=== PATIENT | female | born 1950 | race Caucasian/White ===

== ENCOUNTER 2024-07-15 11:37 | Outpatient (CLI) | payer MEDICARE, SELFPAY ==
--- OUTSIDE RECORDS SUMMARY | 2024-07-15 11:54 | XMS_ITS | Clinical Summary ---
Author Organization [facility] [employer] Address [address] [place] [address] Care Team Providers Care Intelligence Director Name Role Phone Raheel Becker MD Primary Care Provider [phone] Raheel Becker MD Unavailable [phone] Source Comments [facility]non-owned Affiliates and Associated Physician Practices is amultiple site organization consisting of ambulatory clinics and hospital sitesin [place], [place], [place] and [place]. This disclosure is being madepursuant to the Care Everywhere program and may not contain all information available regarding this patient. Last updated 17.[facility] Allergies No known active allergies Medications * This document contains information received from the source organization and may not represent a complete record from that organization. * Be aware that medications may not be up to date on this document. Alwaysverify current medications with the patient. Multiple Vitamins-Minerals (ONE-A-DAY 50 PLUS PO) Active traZODone (Desyrel) 50 MG tabletIndications: Insomnia, unspecified type Take 2 (two) tablets by mouth at bedtime 180 tablet 4 4 Active buPROPion XL 24hr (Wellbutrin-XL) 300 MG tablet Take 1 (one) tablet by mouth once daily 30 tablet 5 4 Active hydroCHLOROthiazid e (Hydrodiuril) 25 MG tablet Take 1 (one) tablet by mouth once daily 90 tablet 1 4 Active rosuvastatin (Crestor) 10 MG tabletIndications: Hyperlipidemia LDL goal <100 Take 1 (one) tablet by mouth once daily 100 tablet 4 5 Active meloxicam (Mobic) 15 MG tablet TAKE 1 TABLET BY MOUTH EVERY DAY 90 tablet 5 Active fluticasone propionate (Flonase) 50 MCG/ACT nasal sprayIndications:P ND (paroxysmal nocturnal dyspnea) SPRAY 2 SPRAYS INTO EACH NOSTRIL EVERY DAY 48 g 1 5 Active HYDROcodone-acetam inophen ([place]) 5-325 MG tabletIndications: Primary osteoarthritis of left hip Take 1 (one) tablet by mouth every 6 hours as needed for Pain 20 tablet 5 07/18/19 25 Active benzonatate (Tessalon) 200 MG capsuleIndications :Cough, unspecified type Take 1 (one) capsule by mouth 3 times daily as needed for Cough 60 capsule 5 06/18/19 25 Discontin ued(List Clean-Up) Active Problems Problem Noted Date Diagnosed Date Balance problem 05/25/2021 Tendinopathy of right rotator cuff 05/24/2020 Primary osteoarthritis involving multiple joints 04/30/2020 Moderate episode of recurrent major depressive d isorder 04/02/2020 Overview (04/02/2020): Barby 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, 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 11/28/2019 Full code status 09/04/2016 HLD (hyperlipidemia) 12/29/2014 Overview (10/25/2022): 10 year CVD risk intermediate at 10.8% 10/25/2022 Chronic back pain 11/03/2014 Assessment & Plan (05/01/2023 11:23 AM LAB REP): Multiple spinal fusions Left lower extremity adversely affected Neuropathy 11/03/2014 Resolved Problems Problem Noted Date Diagnosed Date Resolved Date Depression 02/07/2019 06/17/2024 Congestive heart failure, un specified HF chronicity, unspecified heart failure type 02/07/2019 10/25/2022 Overview (02/07/2019): Shay Johnson MD 02/07/2019 Vitamin D deficiency 10/29/2017 024 Encounters Date Type Department Care Team Description 06/24/2024 Orders Only [facility] [address] [place] [phone] Raheel Becker MD Pre-op exam 06/18/2024 Results Follow-Up [facility] [address] [place] [phone] Raheel Becker MD 06/17/2024 10:40 AM CDT Office Visit [facility] [address] [place] [phone] Raheel Becker MD Pre-op exam (Primary Dx); Primary osteoarthritis of left hip; Moderate episode of recurrent major depressive disorder (HCC); Hyperlipidemia, unspecified hyperlipidemia type; Balance problem; Chronic low back pain, unspecified back pain laterality, unspecified whether sciatica present 05/28/2024 Telephone [facility] [address] [place] [phone] Raheel Becker MD Pre-op Clearance 05/16/2024 Refill [facility] [address] [place] [phone] Raheel Becker MD Med Change Request 05/09/2024 Refill [facility] [address] [place] [phone] Raheel Becker MD Refill Request 04/20/2024 Refill [facility] [address] [place] [phone] Raheel Becker MD Med Change Request from Last 3 Months Immunizations Immunization Administration Dates Next Due Covid Alloy Digital primary monoval ent 12+ yr 0.3mL Purple cap 05/04/2020,04/09/2020 INFLUENZA VACCINE 12/28/2021,11/18/2018,12/03/19 18 INFLUENZA VACCINE, ADJUVANTE D, QUADR. (FLUAD QUADRIVALENT; 65Y+) (AIIV4) 11/15/2022,12/27/2020 INFLUENZA VACCINE, ADJUVANTE D, TRIV. (FLUAD TRIVALENT; 65Y+) (AIIV3) 01/31/2017 INFLUENZA VACCINE, HIGH-DOSE , QUADR. (FLUZONE HIGH-DOSE QUADRIVALENT; 65Y+), 0.7 ML (HD-IIV4) 12/25/2021,11/18/2018 INFLUENZA VACCINE, HIGH-DOSE , TRIV. (FLUZONE HIGH-DOSE TRIVALENT; 65Y+) (HD-IIV3) 11/18/2018,12/02/2017 INFLUENZA VACCINE, QUADR. (A FLURIA, FLUZONE QUADRIVALENT; 6MO+) (IIV4) 12/30/2014,01/03/2014 PNEUMOCOCCAL PPSV23 10/26/2017 Pneumococcal Pcv13 Conj 09/04/2016 RSV AREXVY 60YR+ 0.5ML 02/12/2023 TDAP (7yrs+) 09/04/2016 iNFLUENZA VACCINE, RECOM-BOWLES, QUADR. (FLUBLOCK QUADRIVALENT; 18Y+) (RIV4) 11/28/2019 Family History Medical History Relation Name Comments Cancer - Breast Maternal Aunt Alzheimer's Disease Mother Relation Name Status Comments Maternal Aunt Mother Social History Tobacco Use Types Packs/Day Years Used Date Smoking Tobacco: Former Cigarettes 0.2 20 Smokeless Tobacco: Never Tobacco Cessation:Counseling Given: Not Answered Alcohol Use Standard Drinks/Week Comments Yes 0.8 (1 standard drink = 0.6 oz p ure alcohol) [employer] PHQ-2 Answer Date Recorded Patient Health Questionnaire-2 Score 0 06/17/2024 Comments No Sex and Gender Information Value Date Recorded Sex Assigned at Female 12/24/2020 10:36 AM CDT Legal Sex Female 6:33 AM LAB REP Gender Identity Female 12/24/2020 10:36 AM CDT Sexual Orientation Straight 12/24/2020 10 :36 AM CDT Occupation Industry Job Start Date Job End Date retired/disabled Not on file Not on file Not on file Last Filed Vital Signs Vital Sign Reading Time Taken Comments Blood Pressure 130/72 06/17/2024 10:19 AM CDT Pulse 77 06/17/2024 10:19 AM CDT Temperature 36.4 C (97.6 F) 06/17/2024 10:19 AM CDT Respiratory Rate 18 06/17/2024 10:19 AM CDT Oxygen Saturation 99% 06/17/2024 10:19 AM CDT Inhaled Oxygen Concentration - - Weight 64 kg (141 lb) 06/17/2024 10:19 AM CDT Height 167.6 cm (5' 5.98 ) 06/17/2024 10:19 AM C DT Body Mass Index 22.77 06/17/2024 10:19 AM CDT Plan of Treatment Upcoming Encounters Date Type Department Care Team (Late st Contact Info) Description 11/13/2024 10:00 AM CDT Office Visit [facility] - [facility] Medicine [address] [place] [phone] Raheel Becker MD [address] [phone] Health Maintenance Due Date Last Done Comments COLOGUARD (AGES 45-75) - COLON CA SCREENING 1950 CT COLONOGRAPHY - COLON CA SCREENING 1950 FIT - COLON CA SCREENING 1950 FLEX SIG - COLON CA SCREENING 1950 ZOSTER VACCINE (1 of 2) 02/24/2000 COVID-19 VACCINE ( season) 2024 02/12/2024, 12/25/2021, 12/27/2020, Additional history exists MAMMOGRAM 10/28/2024 10/28/2022, 01/0 07/2020, 01/04/2019, Additional history exists DTAP/TDAP/TD VACCINES (2 - Td or Tdap) 09/04/2026 09/04/2016 COLON MONITORING 01/10/2028 01/09/2023, 09/2022, 01/09/2023, Additional history exists Colorectal Cancer Screening 01/10/2028 COLONOSCOPY - COLON CA SCREENING 01/09/2033 01/09/2023, 01/09/2023, 01/09/2023, Additional history exists HEPATITIS C SCREENING Completed 12/21/2014 PNEUMOCOCCAL VACCINE 50+ Completed 10/26/2017, 07/0 05/2016 BONE DENSITY TESTING Completed 11/23/2017 Respiratory Syncytial Virus (RSV) Vaccine Pt: or over 60 yrs Completed 02/12/2023 INFLUENZA VACCINE Completed 02/12/2024, , 11/15/2022, Additional history exists MEDICARE AWV CALENDAR YEAR Completed 03/28/2024, 05/01/2023, 08/14/2022, Additional history exists DEPRESSION SCREENING Completed 06/17/2024, 05/10/2023, 05/01/2023, Additional history exists HEPATITIS B VACCINE Aged Out No longe r eligible based on patient's age to complete this topic HIB VACCINE Aged Out No longer eligi ble based on patient's age to complete this topic HPV VACCINE Aged Out No longer eligi ble based on patient's age to complete this topic MENINGOCOCCAL (Group B) VACCINE SHARED DECISION-MAKING Aged Out No longer eligible based on patient's age to complete this topic MENINGOCOCCAL GROUPS A/C/Y/W VACCINE Aged Out No longer eligible based on patient's age to complete this topic Procedures Procedure Name Priority Date/Time Associated Diagnosis Comments B-TYPE NATRIURETIC PEPTIDE Routine 06/17/2024 11:16 AM CDT Pre-op exam VITAMIN D 25-HYDROXY Routine 06/17/2024 11:15 AM CDT Pre-op exam LIPID PROFILE Routine 06/17/2024 11:15 AM CDT Pre-op exam COMPREHENSIVE METABOLIC PANEL Routine 06/17/2024 11:15 AM CDT Pre-op exam CBC W AUTO DIFFERENTIAL Routine 06/17/2024 11:15 AM CDT Pre-op exam EKG 12-LEAD Routine 06/17/2024 Pre-op exam ENDOSCOPY, COLON, SCREENING Routine 01/09/2023 10:39 AM LAB REP Screen for colon cancer Personal history of colonic polyps History of diverticulosis MAMMO BILAT SCREENING W DEEDEE Routine 10/28/2022 8:46 AM CDT Screening mammogram for breast cancer DEXA BONE DENSITY AXIAL SKELETON Routine 11/23/2017 12:58 PM CDT At high risk for osteoporosis HEPATITIS C ANTIBODY 12/21/2014 8:18 AM CDT from Last 3 Months or Most Recently Relevant to Health Maintenance Results * B-TYPE NATRIURETIC PEPTIDE (06/17/2024 11:16 AM CDT) BNP 40.3 0.0 - 100.0 pg/mL [facility] ACCOUNT BILL Comment:[employer] methodology Blood BLOOD SPECIMEN / Unknown 06/17/2024 11:16 AM CDT 06/17/2024 Narrative [facility] ACCOUNT BILL - 06/18/2024 8:11 AM CDT Performed at: 01 - [address] [id number] [employer] [place]: Kurtis Law PhD, Phone: [phone] us Raheel Becker MD LAB - CHEMISTRY ORDERABLES Fi nal Result [facility] ACCOUNT BILL [address] [place] [address] * VITAMIN D 25-HYDROXY (06/17/2024 11:15 AM CDT) Vitamin D, 25 Hydroxy 36.7 30.0 - 100.0 ng/mL [facility] ACCOUNT BILL Comment: Vitamin D deficiency has been defined by the [place] of [employer] and an Endocrine Society practice guideline as a level of serum 25-OH vitamin D less than 20 ng/mL (1,2). The Endocrine Society went on to further define vitamin D insufficiency as a level between 21 and 29 ng/mL (2). 1. IOM ([place] of [employer]). 2010. Dietary reference intakes for calcium and D. [place]: The National Academies Press. 2. Gretchen MF, Malorie NC, Deon BOWLES, et al. Evaluation, treatment, and prevention of vitamin D deficiency: an Endocrine Society clinical practice guideline. JCEM. 2010; 96(7):1911-30. Blood BLOOD SPECIMEN / Unknown 06/17/2024 11:15 AM CDT 06/17/2024 Narrative [facility] ACCOUNT BILL - 06/18/2024 7:09 AM CDT Performed at: 01 - [place] [id number] [facility], [place], [place] [id number] [employer] Runner: Kurtis Law PhD, Phone: [phone] us Raheel Becker MD LAB - CHEMISTRY ORDERABLES Fi nal Result [facility] ACCOUNT BILL [address] [place] [address] * CBC WITH DIFFERENTIAL (06/17/2024 11:15 AM CDT) WBC 6.7 3.4 - 10.8 x10E3/uL [facility] ACCOUNT BILL RBC 4.52 3.77 - 5.28 x10E6/uL [facility] ACCOUNT BILL Hemoglobin 13.4 11.1 - 15.9 g/dL [facility] ACCOUNT BILL Hematocrit 41.4 34.0 - 46.6 % [facility] ACCOUNT BILL MCV 92 79 - 97 fL [facility] ACCOUNT BILL MCH 29.6 26.6 - 33.0 pg [facility] ACCOUNT BILL MCHC 32.4 31.5 - 35.7 g/dL [facility] ACCOUNT BILL RDW 12.1 11.7 - 15.4 % [facility] ACCOUNT BILL Platelet Count 369 150 - 450 x10E3/uL [facility] ACCOUNT BILL Granulocytes % 48 Not Estab. % [facility] ACCOUNT BILL Lymphocytes % 36 Not Estab. % [facility] ACCOUNT BILL Monocytes % 13 Not Estab. % [facility] ACCOUNT BILL Eosinophils % 2 Not Estab. % [facility] ACCOUNT BILL Basophils % 1 Not Estab. % [facility] ACCOUNT BILL Granulocytes Absolute 3.3 1.4 - 7.0 x10E3/uL [facility] ACCOUNT BILL Lymphocytes Absolute 2.4 0.7 - 3.1 x10E3/uL [facility] ACCOUNT BILL Monocytes Absolute 0.9 0.1 - 0.9 x10E3/uL [facility] ACCOUNT BILL Eosinophils Absolute 0.1 0.0 - 0.4 x10E3/uL [facility] ACCOUNT BILL Basophils Absolute 0.1 0.0 - 0.2 x10E3/uL [facility] ACCOUNT BILL Immature Granulocytes 0 Not Estab. % [facility] ACCOUNT BILL Immature Granulocytes Absolute 0.0 0.0 - 0.1 x10E3/uL [facility] ACCOUNT BILL Blood BLOOD SPECIMEN / Unknown 06/17/2024 11:15 AM CDT 06/17/2024 Narrative [facility] ACCOUNT BILL - 06/18/2024 12:07 AM CDT Performed at: 01 - [facility] [id number] [place]: Kurtis Law PhD, Phone: [phone] us Raheel Becker MD LAB - HEMATOLOGY ORDERABLES F inal Result [facility] ACCOUNT BILL [address] [place] [address] * COMPREHENSIVE METABOLIC PANEL (06/17/2024 11:15 AM CDT) Pathologist [facility] Glucose 99 70 - 99 mg/dL [facility] ACCOUNT BILL BUN 20 8 - 27 mg/dL [facility] ACCOUNT BILL Creatinine 0.82 0.57 - 1.00 mg/dL [facility] ACCOUNT BILL eGFR by CKD-EPI 75 >59 mL/min/1.7 3 [facility] ACCOUNT BILL BUN/Creatinine Ratio 24 12 - 28 [facility] ACCOUNT BILL Sodium 140 134 - 144 mmol/L [facility] ACCOUNT BILL Potassium 3.9 3.5 - 5.2 mmol/L [facility] ACCOUNT BILL Chloride 99 96 - 106 mmol/L [facility] ACCOUNT BILL CO2 25 20 - 29 mmol/L [facility] ACCOUNT BILL Calcium 10.0 8.7 - 10.3 mg/dL [facility] ACCOUNT BILL Protein Total 7.1 6.0 - 8.5 g/dL [facility] ACCOUNT BILL Albumin 4.8 3.8 - 4.8 g/dL [facility] ACCOUNT BILL Globulin Total 2.3 1.5 - 4.5 g/dL [facility] ACCOUNT BILL Bilirubin Total 0.3 0.0 - 1.2 mg/dL [facility] ACCOUNT BILL Alkaline Phosphatase 112 44 - 121 IU/L [facility] ACCOUNT BILL AST 21 0 - 40 IU/L [facility] ACCOUNT BILL ALT 19 0 - 32 IU/L [facility] ACCOUNT BILL Blood BLOOD SPECIMEN / Unknown 06/17/2024 11:15 AM CDT 06/17/2024 Narrative [facility] ACCOUNT BILL - 06/18/2024 7:09 AM CDT Performed at: 01 - [facility] [id number] [employer] [place]: Kurtis Law PhD, Phone: [phone] us Rhaeel Becker MD LAB - CHEMISTRY ORDERABLES Fi nal Result Performing Organization Address City/[facility]/ZIP Co de Phone Number [facility] ACCOUNT BILL [address] [place] [address] * LIPID PROFILE (06/17/2024 11:15 AM CDT) [facility] Cholesterol 171 100 - 199 mg/dL [facility] ACCOUNT BILL Triglycerides 71 0 - 149 mg/dL [facility] ACCOUNT BILL HDL Cholesterol 77 >39 mg/dL [facility] ACCOUNT BILL VLDL Calculated 13 5 - 40 mg/dL [facility] ACCOUNT BILL LDL Calculated 81 0 - 99 mg/dL [facility] ACCOUNT BILL Blood BLOOD SPECIMEN / Unknown 06/17/2024 11:15 AM CDT 06/17/2024 Narrative [facility] ACCOUNT BILL - 06/18/2024 8:11 AM CDT Performed at: - [address] [id number] [place]: Kurtis Law PhD, Phone: [phone] us Raheel Becker MD LAB - CHEMISTRY ORDERABLES Fi nal Result Performing Organization Address City/[facility]/ZIP Co de Phone Number [facility] ACCOUNT BILL [address] [place] [address] * EKG 12-LEAD (06/17/2024) 06/17/2024 us Raheel Becker MD ECG ORDERABLES Final Result * ENDOSCOPY, COLON, SCREENING (01/09/2023 10:39 AM LAB REP) Report Endoscopy POC _ Patient Name: Diana Keen Procedure Date: 01/09/2023 10:39 AM Date of : 1950 Admit Type: Outpatient Age: 72 Gender: Female Ethnicity: Not or Race: White Attending MD: Lianna Bhardwaj MD, [id number] _ Procedure: Colonoscopy Indications: Surveillance: Personal history of colonic polyps (unknown histology) on last colonoscopy 5 years ago Providers: Lianna Bhardwaj MD (Doctor), Priscilla Ahuja RN, Eliane Fowler RN Patient Profile: 72F presents for surveillance colonoscopy Referring MD: Raheel Becker (Referring MD) Medicines: Monitored Anesthesia Care Complications: No immediate complications. _ Estimated Blood Loss: Estimated blood loss was minimal. Procedure: Pre-Anesthesia Assessment: - Prior to the procedure, a History and Physical was performed, and patient medications and allergies were reviewed. The patient's tolerance of previous anesthesia was also reviewed. The risks and benefits of the procedure and the sedation options and risks were discussed with the patient. All questions were answered, and informed consent was obtained. Prior Anticoagulants: The patient has taken no anticoagulant or antiplatelet agents. ASA Grade Assessment: II - A patient with mild systemic disease. After reviewing the risks and benefits, the patient was deemed in satisfactory condition to undergo the procedure. After I obtained informed consent, the scope was passed under direct vision. Throughout the procedure, the patient's blood pressure, pulse, and oxygen saturations were monitored continuously. The Colonoscope was introduced through the anus and advanced to the cecum, identified by appendiceal orifice and ileocecal valve. The colonoscopy was performed without difficulty. The patient tolerated the procedure well. The quality of the bowel preparation was fair. The ileocecal valve, appendiceal orifice, and rectum were photographed. Impression: - Preparation of the colon was fair. - One 5 mm polyp in the ascending colon, removed with a cold biopsy forceps. Complete resection. Polyp tissue not retrieved. - The examination was otherwise normal. Findings: The perianal and digital rectal examinations were normal. A 5 mm polyp was found in the ascending colon. The polyp was sessile. The polyp was removed with a cold biopsy forceps. Resection was complete, but the polyp tissue was not retrieved. The exam was otherwise without abnormality. _ Recommendation: - Patient has a contact number available for emergencies. The signs and symptoms of potential delayed complications were discussed with the patient. Return to normal activities tomorrow. Written discharge instructions were provided to the patient. - High fiber diet. - Repeat colonoscopy in 5 years for surveillance based on pathology results. Procedure Code(s): --- Professional --- 18130, Colonoscopy, flexible; with biopsy, single or multiple --- Technical --- 75062, Colonoscopy, flexible; with biopsy, single or multiple Diagnosis Code(s): --- Professional --- Z86.010, Personal history of colonic polyps D12.2, Benign neoplasm of ascending colon K57.30, Diverticulosis of large intestine without perforation or abscess without bleeding --- Technical --- Z86.010, Personal history of colonic polyps D12.2, Benign neoplasm of ascending colon K57.30, Diverticulosis of large intestine without perforation or abscess without bleeding CPT copyright 2020 [employer]. All rights reserved. The codes documented in this report are preliminary and upon route jumper review may be revised to meet current compliance requirements. Lianna Bhardwaj MD 01/09/2023 12:13:55 PM This report has been signed electronically. Number of Addenda: 0 Note Initiated On: 01/09/2023 10:39 AM [facility] 01/09/2023 10:3 9 AM LAB REP Narrative Procedure Note Lianna Bhardwaj MD - 01/09/2023 12:14 PM CST Colonoscopy Small asc colon polyp resected, not retrieved Rpt 5 yrs D/w diana us Lianna Bhardwaj MD GI PROCEDURE ORDERABLES Edited R esult - Final [facility] * MAMMO BILAT SCREENING W DEEDEE (10/28/2022 8:46 AM CDT) Anatomical Region Laterality Modality Breast Bilateral Mammography 10/29/2022 8:27 AM CDT Impressions 10/29/2022 8:28 AM CDT : Annual screening mammography is recommended. OVERALL FINAL ASSESSMENT: BI-RADS Category 2: Benign. > Interpreting Provider: Coty Tabor MD on 10/29/2022 8:28 AM Narrative 10/29/2022 8:28 AM CDT EXAMINATION: BILATERAL DIGITAL SCREENING MAMMOGRAM AND BILATERAL BREAST TOMOSYNTHESIS HISTORY: Screening. COMPARISON: Serial examinations dating back to 11/17/2017 TECHNIQUE: BILATERAL digital breast tomosynthesis (DBT) and synthetic 2D digital mammogram images were obtained (bilateral craniocaudal and mediolateral oblique projections) including computer aided detection (CAD.) BREAST PARENCHYMAL COMPOSITION: Category B: There are scattered areas of fibroglandular density. MAMMOGRAM FINDINGS: There is no suspicious finding in either breast. There is a stable global asymmetry in the right central breast. Overall, there has been no significant interval change. us Raheel Becker MD MAMMO ORDERABLES Final Result * DEXA BONE DENSITY AXIAL SKELETON (11/23/2017 12:58 PM CDT) Anatomical Region Laterality Modality Nuclear Medicine 11/23/2017 1:07 PM CDT Impressions 11/23/2017 1:08 PM CDT Normal bone mineral density of the hips. WORLD HEALTH ORGANIZATION DEFINITIONS NORMAL= T-Score at or above -1.0 SD OSTEOPENIA = T-Score between -1 and -2.5 SD OSTEOPOROSIS = T-Score at or below -2.5 SD Reading Radiologist: Iwona Steen MD on 11/23/2017 at 1:08 PM Narrative 11/23/2017 1:08 PM CDT BONE MINERAL DENSITY STUDY: INDICATION: 67-year-old for osteoporosis screening with lumbar fusion hardware. FINDINGS: The mean bone mineral content of the left femoral neck is 1.007 g/cm2. The T-score is -0.2 consistent with normal bone mineral density. The mean bone mineral content of the left total hip is 0.932 g/cm2. The T-score is -0.6 consistent with normal bone mineral density. The mean bone mineral content of the right femoral neck is 0.929 g/cm2. The T-score is -0.8 consistent with normal bone mineral density. The mean bone mineral content of the right total hip is 0.941 g/cm2. The T-score is -0.5 consistent with normal bone mineral density. FRAX 10 year fracture risk Major osteoporotic fracture: 8.2% Hip fracture: 0.6% Procedure Note Iwona Steen, DO - 11/23/2017 BONE MINERAL DENSITY STUDY: INDICATION: 67-year-old for osteoporosis screening with lumbar fusion hardware. FINDINGS: The mean bone mineral content of the left femoral neck is 1.007 g/cm2. The T-score is -0.2 consistent with normal bone mineral density. The mean bone mineral content of the left total hip is 0.932 g/cm2. The T-score is -0.6 consistent with normal bone mineral density. The mean bone mineral content of the right femoral neck is 0.929 g/cm2. The T-score is -0.8 consistent with normal bone mineral density. The mean bone mineral content of the right total hip is 0.941 g/cm2. The T-score is -0.5 consistent with normal bone mineral density. FRAX 10 year fracture risk Major osteoporotic fracture: 8.2% Hip fracture: 0.6% IMPRESSION Normal bone mineral density of the hips. WORLD HEALTH ORGANIZATION DEFINITIONS NORMAL= T-Score at or above -1.0 SD OSTEOPENIA = T-Score between -1 and -2.5 SD OSTEOPOROSIS = T-Score at or below -2.5 SD Reading Radiologist: Iwona Steen MD on 11/23/2017 at 1:08 PM us Anahi Ma MD DEXA ORDERABLES Final Result * HEPATITIS C ANTIBODY (12/21/2014 8:18 AM CDT) Hepatitis C Antibody NON-REACT MARIO ALBERTO NON-REACT MARIO ALBERTO [facility] Signal to Cut-Off 0.07 <1.00 [facility] Comment: Effective January 11, 2015, Hepatitis C Antibody (test code 8472) will be revised to automatically reflex to the Hepatitis C Viral RNA, Quantitative, Real-Time PCR assay if the antibody screening result is Reactive. We are instituting this change per the CDC/USPSTF recommendations regarding the HCV diagnostic algorithm. As of January 11, 2015 the name of the test code 8472 will be Hepatitis C Antibody with Reflex to HCV RNA, Quantitative, Real-Time PCR. This change will also be reflected in standard and custom profiles that currently include test code 8472. Test Performed at: [email or web address] [address] [place] [address] DONNA HEREDIA DO,MPH Specimen (Source) Anatomical Location / Laterality Collection Method / Volume Collection Time Recei [id number]|2024-07-15 11:54:00|2024-07-15 11:53:00|XMS_ITS|JANNA KELLEY|External Medical Summaries|[id number]|" Continuity of Care Document (C-CDA R2.1) (Encounter date: 04/07/2014 12:00 AM) Created on: July 15, 2024 Diana Keen : 1950 Sex: Female Author Organization [facility] Address [address] [place] [address] Phone Care Team Providers Care Intelligence Director Name Role Phone Shaka Peña MD Unavailable Unavailable Allergies, Adverse Reactions, Alerts Substance Reaction Status Criticality No Known Drug Allergies Active No I nformation Medications Medication Instructions Dosage Effective Dates (start - stop) Status Comments HYDROCODONE-ACETAM INOPHEN (unknown strength) take 1 - 2 Tablet by oral route 2 times every day as needed for pain Not Available - Active Procedures Procedure Date Special Narrative Report X-ray exam Lumbar 4+ views Independent Medical Examination YANNICK Advance Directives Directive Yes / No Effective Date File Name No Information Encounters Encounter Description Practice Location Reason(s) For Visit Diagnoses Date Provider Providers Copied on Encounter [facility], [address] [place] [address], [id number], tel:[phone] [facility] No Information 5 Casey Matt. [address] [place] [address], [id number] , [place]. tel:[phone] Independent Medical Examination [facility], [address] [place] [address], [id number], [place] tel:[phone] [facility] LUMBAGOLow back pain 4 Casey Matt. [address] [place] [address], [id number] , [place]. tel: [phone] Family History Family Member Type Diagnosis Age At Onset Problem (finding) Family history of Menta l illness Immunizations Vaccine Date Status Comments Flu (split) (3 yrs or older) administered Source: Other Provider Payers Payer name Insurance type Covered green party ID Chelsie guo(s) [facility] [id number] Social History Type Description Quantity Date Captured Comments Sex Female Smoking Status No Information Chief Complaint And Reason For Visit No Information Reason For Referral Reason For Referral No Information Plan Of Treatment Date Type Action Status Referral Ordered: X-ray exam Lumbar 4+ views ordered Patient Education Body Mass Index: After Your Visit completed Patient Education Nuaeew-wu-Jyak Plan for People With Lo completed History Of Present Illness Encounter Date Complaint History Of Prese nt Illness No Information Functional Status Date Functional Assessmen t No Information Instructions Date Instruction Additional Infor mation No Information Assessments Type Assessment Date No Information Patient Care Teams Name Effective Dates (start - stop) Status Members No Information "
--- OUTSIDE RECORDS SUMMARY | 2024-07-15 11:54 | XMS_ITS | Encounter Summary ---
Author Organization [facility] Address [address] [place] [address] Care Team Providers Care Whiskey Proof Reader Name Role Phone Raheel Becker MD Primary Care Provider [phone] Raheel Becker MD Unavailable [phone] Encounter Details Date Type Department Care Team (Late st Contact Info) Description 06/18/2024 Results Follow-Up [facility] Medical [facility] - Internal Medicine [address] [place] [address] Raheel Becker MD [address] [place] [id number] Social History Tobacco Use Types Packs/Day Years Used Date Smoking Tobacco: Former Cigarettes 0.2 20 Smokeless Tobacco: Never Alcohol Use Standard Drinks/Week Comments Yes 0.8 (1 standard drink = 0.6 oz p ure alcohol) Citlaly and Movie Fridays PHQ-2 Answer Date Recorded Patient Health Questionnaire-2 Score 0 06/17/2024 Comments No Sex and Gender Information Value Date Recorded Sex Assigned at Female 12/24/2020 10:36 AM CDT 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 Answer Date of Assessment Author No 11/30/2017 12:58 PM CDT Isaías Martínez RN documented as of this encounter Plan of Treatment Upcoming Encounters Date Type Department Care Team (Late st Contact Info) Description 11/13/2024 10:00 AM CDT Office Visit [facility] Medical [facility] - Internal Medicine [address] [facility] [facility] [address] [place] [address] [place] [address] [place] [address] [place] [id number] documented as of this encounter Visit Diagnoses Not on filedocumented in this encounter Care Teams Whiskey Proof Reader Relationship Specialty Start Date End Date Raheel Becker MD [address] [place] [id number] PCP - General Internal Medicine 10/25/22 Raheel Becker MD [address] [place] [id number] [facility] - [facility] 09/03/23 documented as of this encounter
--- OUTSIDE RECORDS SUMMARY | 2024-07-15 11:54 | XMS_ITS | Continuity of Care Document ---
Author Organization [facility] Address [address] [facility] [address] [place] [address] Phone Care Team Providers Care Peeler Operator Name Role Phone Kev Flores MD Unavailable Unavailable Allergies, Adverse Reactions, Alerts Substance Reaction Status Criticality No Known Allergies Active No Inform ation Medications Medication Instructions Dosage Effective Dates (start - stop) Status Comments hydrochlorothiazide (unknown strength) Not Available - Active bupropion HCl 75 mg tablet take 1 tablet by oral route 3 times every day 75 MG - Active TYLENOL (unknown strength) Not Available - Active ibuprofen 200 mg capsule take 1 capsule by oral route every 6 hours as needed 200 MG - No Longer Active Procedures Procedure Date EYE EXAM, NEW PATIENT OPSCPY EXTND RTA DRAW UNI/BI REFRACTION POSTOP FOLLOW-UP VISIT AFTER CATARACT LASER SURGERY AFTER CATARACT LASER SURGERY OFFICE/OUTPATIENT VISIT, EST POSTOP FOLLOW-UP VISIT POSTOP FOLLOW-UP VISIT CATARACT SURG W/IOL, 1 STAGE POSTOP FOLLOW-UP VISIT POSTOP FOLLOW-UP VISIT CATARACT SURG W/IOL, 1 STAGE OFFICE/OUTPATIENT VISIT, NEW OPHTHALMIC BIOMETRY OPHTHALMIC BIOMETRY MICROFLUID PK TEARS MCR ONLY MICROFLUID PK TEARS MCR ONLY 017 Advance Directives Directive Yes / No Effective Date File Name No Information Encounters Encounter Description Practice Location Reason(s) For Visit Diagnoses Date Provider Providers Copied on Encounter [facility], [address] [place] [address], [place], [place], [id number], tel:[phone] [facility] Pseudophakia OU (chief complaint)Bum p LLL (chief complaint) Pseudophakia Other vitreous opacities, bilateralDry eye syndrome of bilateral lacrimal glands 1 Mark Angulo. [address] [place] [address], [address], [place], [place], [id number], [place]. tel:[phone] Referring Provider: Kev Callahan, [address] [place] [address] Suite [facility] [place], [place], [address]. tel:[phone] [facility], [address] [place] [address], [place], [place], [id number], tel:[phone] [facility] CH[facility]Z looks like pulled cotton around vision OU (chief complaint)hea daches, halos around lights OU (chief complaint) No Information 7 Mark Angulo. [address] [place] [address], [address], [place], [place], [id number], [place]. tel:[phone] Referring Provider: Kev Callahan, [address] [place] [address] [address], [place], [address]. tel:[phone] [facility], [address] [place] [address], [place], [place], [id number], tel:[phone] [facility] No Information 7 Mark Angulo. [address] [place] [address], [address], [place], [place], [id number], [place]. tel:[phone] Referring Provider: Kev Callahan, [address] [place] [address] [address], [place], [address]. tel:[phone] [facility], [address] [place] [address], [id number], [place] tel:[phone] [facility] No Information 7 Mark Angulo. [address] [facility], [address], [place], [place], [id number], [place]. tel:[phone] Referring Provider: Kev Callahan, [address] [place] [address] [address], [place], [address]. tel:[phone] OFFICE/OUTPA TIENT VISIT, EST [facility], [address] [place] [address], [place], [place], [id number], [place] tel:[phone] [facility] cloudy vision (chief complaint) Other secondary cataract, bilateralOth er vitreous opacities, bilateralPse udophakia Dec- 7 Mark Angulo. [address] [place] [address], [address], [place], [place], [id number], [place]. tel:[phone] Referring Provider: Kev Callahan, [address] [place] [address] [address], [place], [address]. tel:[phone] [facility], [address] [place] [address], [place], [place], [id number], [place] tel:[phone] [facility] blurry vision OU (chief complaint) No Information 7 Mark Angulo. [address] [place] [address], [address], [place], [place], [id number], [place]. tel:[phone] Referring Provider: Kev Callahan, [address] [place] [address] [address], [place], [address]. tel:[phone] [facility], [address] [place] [address], [id number], [place] tel:[phone] [facility] foreign body sensation OS (chief complaint)vis ion's a little blurry but pretty good OS (chief complaint) No Information 7 Mark Angulo. [address] [place] [address], [address], [place], [place], [id number], [place]. tel:[phone] Referring Provider: Kev Callahan, [address] [place] [address] [address], [place], [address]. tel:[phone] [facility], [address] [place] [address], [id number], tel:[phone] [facility] [place] No Information 7 Mark Kev. [address] [place] [address], [address], [place], [place], [id number], [place]. tel:[phone] Referring Provider: Kev Callahan, [address] [place] [address] [address], [place], [address]. tel:[phone] [facility], [address] [place] [address], [id number], tel:[phone] [facility] foreign body sensation OD (chief complaint) No Information 7 Mark Kev. [address] [place] [address], [place] [address], [place], [place], [id number], [place]. tel:[phone] Referring Provider: Kev Callahan, [address] [place] [address] [address], [place], [address]. tel:[phone] [facility], [address] [place] [address], [id number], [place] tel:[phone] [facility] blurry vision, doing well OD (chief complaint) No Information 7 Mark Kev. [address] [place] [address], [address], [place], [place], [id number], [place]. tel:[phone] Referring Provider: Kev Callahan, [address] [place] [address] [address], [place], [address]. tel:[phone] [facility], [address] [place] [address], [id number], [place] tel:[phone] [facility] [place] No Information 7 Mark Kev. [address] [place] [address], [facility] [address], [place], [place], [id number], [place]. tel:[phone] Referring Provider: Kev Callahan, [address] [facility] [address], [place], [address]. tel:[phone] OFFICE/OUTPA TIENT VISIT, NEW [facility], [address], [place], [place], [id number], [place] tel:[phone] [facility] ABBEY CHAVEZ blurred vision (chief complaint) Age-related nuclear cataract, bilateralCor tical age-related cataract, bilateralOth er vitreous opacities, bilateral Kevin- 7 Mark Angulo. [address] [facility], [address], [place], [place], [id number], [place]. tel:[phone] Referring Provider: Kev Callahan, [address] [facility] [address], [place], [address]. tel:[phone] Family History Family Member Type Diagnosis Age At Onset Problem Family history of Cardiovasc ular disease Payers Payer name Insurance type Covered libertarian ID Authoriza tion(s) Medicare Complete Advantage [facility] [id number] Social History Type Description Quantity Date Captured Comments Alcohol Use Details Unknown Caffeine Use Details Unknown Tobacco Use Status No Information Smoking Status Never smoker Non-Smoking Tobacco Use Details : No Details Available : No Details Available Sex Female Vital Signs Date / Time: Height Weight BMI Pulse Rate Blood Pressure Temperature Respiratory Rate Body Surface Area Head Circumference Head Circ. Percentile Wt./Azam. Percentile BMI percentile Pulse Ox Inhaled Ox 9:38 AM 66.00 in 72.575 kg (160.00 lbs) 25.8 2 kg/m byroner (2) Chief Complaint And Reason For Visit From encounter dated '01/13/2021 08:30'. Pseudophakia OU (chief complaint). Description: The 70 year old female presents for evaluation of Pseudophakia OU. Patient says that she isn't noticing any changes with her vision. Still feels like she has a standing rock of blur on the outer rim of her vision, worse with the left eye then the right. Says it has been there since she was here in 2017. For awhile now she has had what she describes as if something is in the left eye, finds herself looking in the mirror every other day to see if there is something in the eye. Not currently using any eye drops. Currently just wears glasses when she needs to read small print. Bump LLL (chief complaint). Description: The patient is present for evaluation of Bump LLL. Patienthas noticed a bump on her left lower lid for a few months now that is bothering her. Doesn't seem to be going away at all. Feels like she can see it in her vision all the time. Reason For Referral Reason For Referral No Information History Of Present Illness Encounter Date Complaint History Of Prese nt Illness Pseudophakia OU The 70 year old female presents for evaluation of Pseudophakia OU. Patient says that she isn't noticing any changes with her vision. Still feels like she has a standing rock of blur on the outer rim of her vision, worse with the left eye then the right. Says it has been there since she was here in 2016. For awhile now she has had what she describes as if something is in the left eye, finds herself looking in the mirror every other day to see if there is something in the eye. Not currently using any eye drops. Currently just wears glasses when she needs to read small print. Bump LLL The patient is p resent for evaluation of Bump LLL. Patient has noticed a bump on her left lower lid for a few months now that is bothering her. Doesn't seem to be going away at all. Feels like she can see it in her vision all the time. headaches, halos around lights h eadaches, halos around lights OU looks like pulled c otton around vision looks like pulled cotton around vision OU cloudy vision The 66 year old female presents for evaluation of cloudy vision in the right eye and left eye. It started about 2 month(s) ago. It affects OU. The symptom is constant. The condition is moderate. Pt states she is having cloudy vision OD. Pt states she has bad starbursts in both eyes when night driving. blurry vision blurry vision OU foreign body sensation foreign b melissa sensation OS vision's a little bl urry but pretty good vision's a little blurry but pretty good OS foreign body sensation foreign b melissa sensation OD blurry vision, doing well blurry vision, doing well OD blurred vision The 66 year old female presents for evaluation of blurred vision in the right eye and left eye. It started about 6 month(s) ago. It affects both near and far vision. The symptom is constant. The condition is significant. Pt was examined at [facility] last week and was told to have her cataracts evaluated. Pt C/O blurred vision in OU at distance and near in current glasses. Pt states glare from headlights are very bothersome while drivign at night and street signs are becoming more difficult to see when driving OU. Pt C/O FBS OS constantly , never finding anything, and uses AT's 2-3 times per week OU. tearlab was ordered today 305/312 Functional Status Date Functional Assessmen t No Information Instructions Date Instruction Additional Infor mation Impression/Plan Related to Dry e ye syndrome of bilateral lacrimal glands Impression/Plan Related to Pseud ophakia Impression/Plan Related to Other vitreous opacities, bilateral Impression/Plan - pt can return after YAG PC for refraction if inspector timers glasses are desired. Related to Pseudophakia Impression/Plan - OU : No treatment is required at this time. Advised patient of condition. Will continue to observe condition and or symptoms. Discussed signs and symptoms of PVD/floaters. Educational materials provided:Flashers/floaters. Related to Other vitreous opacities, bilateral Impression/Plan - OU : Discussed diagnosis in detail with patient. Advised patient of condition. Surgical risks and benefits were discussed, explained and understood by patient. Schedule YAG PC - OD then OS Related to Other secondary cataract, bilateral Follow up - RTO for CE IOL OD then OS std / dist[facility]: [facility] Impression/Plan - OU : No treatment is required at this time. Advised patient of condition. Will continue to observe condition and or symptoms. Discussed signs and symptoms of PVD/floaters. Educational materials provided:Flashers/floaters. Related to Other vitreous opacities, bilateral Impression/Plan - Ca taracts account for the patient's complaints. Discussed all risks, benefits, procedures and recovery. Patient understands changing glasses will not improve vision. Patient desires to have surgery, recommend phacoemulsification with intraocular lens.Discussed std IOL vs MF IOL options. Sched. OD then OSstd / dist Related to Cortical age-related cataract, bilateral Impression/Plan - Ca taracts account for the patient's complaints. Discussed all risks, benefits, procedures and recovery. Patient understands changing glasses will not improve vision. Patient desires to have surgery, recommend phacoemulsification with intraocular lens. Related to Age-related nuclear cataract, bilateral Assessments Type Assessment Date assessment Pseudophakia assessment Other vitreous opacities, bilate ral impression Other vitreous opacities, bilate ral: H43.393 OU impression Pseudophakia: Z96.1 assessment Dry eye syndrome of bilateral la crimal glands impression Dry eye syndrome of bilateral la crimal glands: H04.123 Patient Care Teams Name Effective Dates (start - stop) Status Members No Information
--- OUTSIDE RECORDS SUMMARY | 2024-07-15 11:54 | XMS_ITS | CONTINUITY OF CARE DOCUMENT ---
Author Name ingrid quintero Address Unknown Organization [facility] Address [address] [facility] [address] [place] [address] Phone [phone] Care Team Providers Care Board Handler Name Role Phone Robin AMEZCUA, Fabián Unavailable [phone] Fabián Kelly MD Unavailable [phone] INSURANCE PROVIDERS Payer name Policy type / Coverage type Reynolds red libertarian ID [facility] MEDICARE ADVANTAGE (PPO) Commercial in [employer] [id number]
--- OUTSIDE RECORDS SUMMARY | 2024-07-15 11:54 | XMS_ITS | Encounter Summary ---
Author Organization [facility] Address [address] [place] [address] Care Team Providers Care Anthropology Instructor Name Role Phone Shay Johnson MD Primary Care Provider [phone] Shay Johnson MD Unavailable + Pcp, [facility] Primary Care Provider Unavailable Raheel Becker MD Primary Care Provider Raheel Becker MD Unavailable [phone] Francisco Javier Byrne Unavailable Raheel Becker MD Unavailable [phone] Reason for Visit * Reason Comments Refill Request Encounter Details Date Type Department Care Team (Late st Contact Info) Description 06/03/2020 Refill [facility] [address] [place] [address] Shira Sevilla MD [address] [facility] [place] [address] Refill Request Social History Tobacco Use Types Packs/Day Years Used Date Smoking Tobacco: Former Cigarettes 0.2 20 Smokeless Tobacco: Never Alcohol Use Standard Drinks/Week Comments Yes 0.8 (1 standard drink = 0.6 oz p ure alcohol) Citlaly and Movie Fridays Comments No Sex and Gender Information Value Date Recorded Sex Assigned at Female 12/24/2020 10:36 AM CDT 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 Gender Identity Female 12/24/2020 10:36 AM CDT [...] Description 11/13/2024 10:00 AM CDT Office Visit [facility] - Internal Medicine [address] [place] [address] [place] [address] Raheel Becker MD [address] [place] [address] documented as of this encounter Visit Diagnoses Not on filedocumented in this encounter Care Teams Anthropology Instructor Relationship Specialty Start Date End Date Shay Johnson MD PCP - General Internal Medicine 01/04/19 09/28/22 Shay Johnson MD [address] [place] [address] PCP - Attributed-[facility] 11/03/18 Pcp, [facility] PCP - General 09/29/22 10/24/22 Raheel Becker MD [address] [place] [address] PCP - General Internal Medicine 10/25/22 Raheel Becker MD [address] [place] [address] PCP - Attributed-[facility] [place] 12/03/22 Raheel Becker MD [address] [facility] [address] [place] [address] PCP - Attributed-[facility] P4P 09/03/23 Francisco Javier Byrne Care Coordination Specialist Care Management 09/10/23 09/10/23 documented as of this encounter
[2024-07-15 19:31] LABS: Hemoglobin A1C 5.7 % (<5.7)
[2024-07-16 12:22] LABS: Urine Cotinine Negative
== END 2024-07-15 11:38 | disposition home or self-care (01) ==
LOC: ANHSURGERY 11:49
PROVIDERS: Visit Provider Orthopaedic Surgery
DX: M16.12 Unilateral primary osteoarthritis, left hip (principal); Z01.818 Encounter for other preprocedural examination
CPT/HCPCS: 80307; 83036; 87081

== ENCOUNTER 2024-08-05 02:11 | Day surgery (SDC) | payer MEDICARE, SELFPAY ==
--- NOTE | 2024-07-15 11:49 | PC.NURSE ---
Addendum entered by Maria D Gustafson RN 07/15/24 13:06: hold vitamins/supplements 3 days pre-op per anesthesia, last dose 08/01/24. pt relays understanding. Original Note: Report to the Outpatient Waiting Room, entrance under the green pavilion located off [facility], at time __6:00am on date ___08/05/24____. Planned Procedure Time: ___7:30am .? Time changes happen often and if your time is changed the preop area will call you the afternoon before. - You and your visitor will be asked to self-screen and do not enter if you have any COVID symptoms. Please call surgeon if you need to reschedule. - A mask is optional within the hospital at this time. Patients may have clear liquids (water, carbonated beverages, clear teas, apple juice) until 3 hours prior to surgery (4:30am) with a maximum of 20 ounces. - No food from midnight until time of surgery and no smoking, or chewing tobacco (or any form of nicotine). No chewing gum, candy or mints. Take only the following medications with a SIP of water on the morning of surgery: BUPROPION DO NOT STOP ANY OF YOUR OTHER PRESCRIPTION MEDICATIONS PRIOR TO SURGERY EXCEPT THE FOLLOWING Hold all vitamins and supplements for 3 days per anesthesiologist. Medications to discontinue per physician ___HOLD MELOXICAM(NSAIDS) 7 DAYS PRE-OP PER DR FELDER. Date to take last dose 07/28/24 Please no make-up, nail english, hairspray, perfume, deodorant, or body powder the day of surgery.? No jewelry (including any body piercings) or valuables the day of surgery, leave them at home.? Please take a shower or bath the night before, or the morning of, surgery with an antibacterial soap.? Wear comfortable, loose fitting clothing.? - Jewelry must be removed prior to entering the operating room.? Rings and piercings that are not removed may be cut off. - The hospital will not accept responsibility for valuables.? - Please leave all valuables, including medications, at home the day of surgery. If you are going home after surgery, a licensed transportation driver must drive you home.? - NO public transportation without another adult if you receive anesthesia. - We recommend that an adult stay with you for 24 hours following discharge. - We also recommend that you do not drive, make important decision, drink alcoholic beverages, or take any drugs that were not prescribed by your health care provider for at least 24 hours after your discharge time. Follow any additional instructions given to you from your surgeon. Telephone instructions given to ____PATIENT and asked if any additional questions and then verbalized understanding. Patient advised to call surgeon office or pre surgery nurse liaison [phone] if any additional questions.
[2024-07-15 12:04] VITALS: BP 129/83; PULSE 66; RESP 16; TEMP 36.4; O2SAT 98; BMI 24.4
--- NOTE | 2024-08-04 12:29 | PM.IMHP ---
H&P: HPI History of Present Illness Date/Time: 08/04/24 12:29 Chief Complaint: Left hip DJD Narrative: 74-year-old female presents today for left anterior total hip arthroplasty. Patient has been having symptoms for several years in the left hip. They progressively worsened. At this point she is having significant pain in the groin and anterior lateral hip. She has limited with her walking due to the pain. She has been using a cane in last several months to help with that. Patient has been taking meloxicam 15 mg daily. She does have severe osteoarthritis in the left hip. She feels at this point her symptoms are severe enough and affecting her daily lifestyle she would rather proceed with total hip arthroplasty at this point. Review of Systems Review of Systems: All systems reviewed & are unremarkable except as noted in HPI and below PMFSH Surgical History Surgical History (Updated 05/19/24 @ 13:29 by Alexandria Hall CMA) History of spinal surgery spinal fusion twice Disc's removed Social History Social History (Updated 05/19/24 @ 13:28 by Alexandria Hall CMA) Smoking packs per day: 0.2 Smoking cigarettes per day: 4.0 Years smoked: 7 Smoking pack-years: 1.40 Smoking status: Former smoker Tobacco type: cigarettes Smoking end date: 09/02/74 Alcohol intake: current Substance use: never Do You Feel Safe in your Home?: Yes Lack of Transportation: No Lack of Food: Never True Current Housing: I Have Housing Concerned About Future Housing: No Difficulty Paying Gas/Electric Bills: No Difficulty Paying for Meds: No Currently Unemployed: No Education: Associate Degree Difficulty w/ Childcare or Family Care: No Living arrangements: alone Spiritual care concerns: No Meds Home Medications and Allergies Home Medications ?Medication ?Instructions ?Recorded ?Confirmed ?Type bupropion HCl 300 mg 24 hr tablet, 300 mg PO QAM 05/19/24 07/15/24 History extended release cholecalciferol (vitamin D3) 25 25 mcg PO DAILY 05/19/24 07/15/24 History mcg (1,000 unit) capsule fluticasone propionate 50 2 spray intranasal DAILY 05/19/24 07/15/24 History mcg/actuation nasal spray,suspension hydrochlorothiazide 25 mg tablet 25 mg PO DAILY 05/19/24 07/15/24 History meloxicam 15 mg tablet 15 mg PO DAILY 05/19/24 07/15/24 History multivitamin (Daily Multi-Vitamin 1 tablet PO DAILY 05/19/24 07/15/24 History tablet) oxybutynin chloride 5 mg tablet 5 mg PO DAILY 05/19/24 07/15/24 History rosuvastatin 10 mg tablet 10 mg PO DAILY 05/19/24 07/15/24 History cyanocobalamin (vitamin B-12) 3,000 mcg PO DAILY 07/15/24 07/15/24 History 3,000 mcg capsule hydrocodone 5 mg-acetaminophen 325 1 tablet PO Q12H PRN pain 07/15/24 07/15/24 History mg tablet Allergies Allergy/AdvReac Type Severity Reaction Status Date / Time No Known Allergies Allergy Unverified 07/15/24 11:54 Exam Narrative: 74-year-old female alert pleasant. She is 5 ft 5 149 lb BMI is 24. She has to minutes sensation with tingling in the lateral calf and plantar left foot mostly around the midfoot. This has been a chronic problem since low back fusion 12 years ago. She has mildly weak dorsiflexion eversion and inversion normal. Quad strength is normal. Her left hip range of motion is from 10 to degrees. Internal rotation is 5? short of neutral external rotation to 30. With range of motion she complains of anterior lateral hip and groin pain. Stinchfield maneuver causes her anterior lateral hip pain. She has normal abduction strength lateral position. 2+ dorsalis pedis and posterior tibial artery pulse palpable. No edema in either lower extremity. Resp: Auscultation: clear to auscultation bilaterally Cardio: Rate: regular rate Rhythm: regular rhythm Assessment and Plan Assessment and plan (1) Primary osteoarthritis of left hip: Code(s): M16.12 - Unilateral primary osteoarthritis, left hip Status: Acute Assessment and Plan: 74-year-old female who has severe osteoarthritis left hip. At this point she is having significant symptoms on a daily basis and the pain from her arthritis is affecting her daily lifestyle. She would like to proceed with total hip arthroplasty at this point. Surgical procedure as well as the risks and complications were discussed in detail all questions were answered proceed. Patient will see her primary care doctor for pre-surgical clearance. She will stop her meloxicam and any other aspirin ibuprofen products to surgery. Patient's nasal swab was negative. Hemoglobin is 13.4 and platelets were 369. Chem panel is all within normal limits creatinine 0.82
--- NOTE | 2024-08-04 15:26 | WPDANESEPPF ---
Anes - Initial Pre Proc Eval Procedure: Operation Date: 08/05/24 07:30 Proposed Procedures p Left Total Hip Arthroplasty, Direct Anterior Approach - Sanford Mariano MD Date/Time: 08/04/24 15:26 Surgeon: Sanford Mariano MD Pre Op Diagnosis: OA left hip Patient Data Age: 74 Gender: F Height: 1.68 m Weight: 68.6 kg Last Vital Signs Temp 97.6 F 07/15/24 12:04 Pulse 66 07/15/24 12:04 Resp 16 07/15/24 12:04 BP 129/83 07/15/24 12:04 Pulse Ox 98 07/15/24 12:04 O2 Del Method Room Air 07/15/24 12:04 Allergies Allergy/AdvReac Type Severity Reaction Status Date / Time No Known Allergies Allergy Unverified 07/15/24 11:54 Home Medications ?Medication ?Instructions ?Recorded ?Confirmed ?Type bupropion HCl 300 mg 24 hr tablet, 300 mg PO QAM 05/19/24 07/15/24 History extended release cholecalciferol (vitamin D3) 25 25 mcg PO DAILY 05/19/24 07/15/24 History mcg (1,000 unit) capsule fluticasone propionate 50 2 spray intranasal DAILY 05/19/24 07/15/24 History mcg/actuation nasal spray,suspension hydrochlorothiazide 25 mg tablet 25 mg PO DAILY 05/19/24 07/15/24 History meloxicam 15 mg tablet 15 mg PO DAILY 05/19/24 07/15/24 History multivitamin (Daily Multi-Vitamin 1 tablet PO DAILY 05/19/24 07/15/24 History tablet) oxybutynin chloride 5 mg tablet 5 mg PO DAILY 05/19/24 07/15/24 History rosuvastatin 10 mg tablet 10 mg PO DAILY 05/19/24 07/15/24 History cyanocobalamin (vitamin B-12) 3,000 mcg PO DAILY 07/15/24 07/15/24 History 3,000 mcg capsule hydrocodone 5 mg-acetaminophen 325 1 tablet PO Q12H PRN pain 07/15/24 07/15/24 History mg tablet Results Review: All pre-operative results and documents have been reviewed as part of the pre-operative evaluation. [facility] Surgical History Surgical History (Updated 05/19/24 @ 13:29 by Alexandria Hall CMA) History of spinal surgery spinal fusion twice Disc's removed Social History Social History (Updated 05/19/24 @ 13:28 by Alexandria Hall CMA) Smoking packs per day: 0.2 Smoking cigarettes per day: 4.0 Years smoked: 7 Smoking pack-years: 1.40 Smoking status: Former smoker Tobacco type: cigarettes Smoking end date: 09/02/74 Alcohol intake: current Substance use: never Do You Feel Safe in your Home?: Yes Lack of Transportation: No Lack of Food: Never True Current Housing: I Have Housing Concerned About Future Housing: No Difficulty Paying Gas/Electric Bills: No Difficulty Paying for Meds: No Currently Unemployed: No Education: Associate Degree Difficulty w/ Childcare or Family Care: No Living arrangements: alone Spiritual care concerns: No Anes - Eval Final PreProcedure Day of Procedure 08/04/24 15:26 Results Review: All pre-operative results and documents have been reviewed as part of the pre-operative evaluation. Informed Consent: The patient's anesthetic plan and its attendant risks and benefits were discussed with the patient/family/POA. Questions were solicited and answers provided to the satisfaction of the patient/family/POA.
--- OUTSIDE RECORDS SUMMARY | 2024-08-05 02:14 | XMS_ITS | Continuity of Care Document ---
Author Organization [facility] Address [address] [place] [address] Phone Care Team Providers Care Physician Aide Name Role Phone Shaka Peña MD Unavailable [...] Date Provider Providers Copied on Encounter [facility], [address], [id number], [place] tel:[phone] [facility] No Information 5 Casey Matt. [address] [facility], [place] [address], [place], [place], [id number] , [place]. tel: [phone] Independent Medical Examination [facility], [address] [place] [address], [id number], [place] tel:[phone] [facility] LUMBAGOLow back pain 4 Casey Matt. [address] [facility], [address], [id number] , [place]. tel: [phone] Family History Family Member Type Diagnosis Age At Onset Problem (finding) Family history of Menta l illness Immunizations Vaccine Date Status Comments Flu (split) (3 yrs or older) administered Source: Other Provider Payers Payer name Insurance type Covered alliance party ID Authorbrayan guo(s) [facility] [id number] Social History Type Description Quantity Date Captured Comments Sex Female Smoking Status No Information Chief Complaint And Reason For Visit No Information Reason For Referral Reason For Referral No Information Plan Of Treatment Date Type Action Status Referral Ordered: X-ray exam Lumbar 4+ views ordered Patient Education Body Mass Index: After Your Visit completed Patient Education [id number] Plan for People With Lo completed History Of Present Illness Encounter Date Complaint History Of Prese nt Illness No Information Functional Status Date Functional Assessmen t No Information Instructions Date Instruction Additional Infor mation No Information Assessments Type Assessment Date No Information Patient Care Teams Name Effective Dates (start - stop) Status Members No Information
--- OUTSIDE RECORDS SUMMARY | 2024-08-05 02:14 | XMS_ITS | CONTINUITY OF CARE DOCUMENT ---
Author Name ingrid quintero Address Unknown Organization [facility] Address [address] [facility] [address] [place] [address] Phone [phone] Care Team Providers Care Associate Store Director Name Role Phone Robin AMEZCUA, Fabián Unavailable [phone] Fabián Kelly MD Unavailable [phone] INSURANCE PROVIDERS Payer name Policy type / Coverage type [place] red constitution party ID [facility] MEDICARE ADVANTAGE (PPO) Commercial in [employer] [id number]
--- OUTSIDE RECORDS SUMMARY | 2024-08-05 02:14 | XMS_ITS | Encounter Summary ---
Author Organization [facility] Address [address] [place] [address] Care Team Providers Care Machine Crater Name Role Phone Shay Johnson MD Primary Care Provider [phone] Shay Johnson MD Unavailable + Pcp, [facility] Primary Care Provider Unavailable Raheel Becker MD Primary Care Provider Raheel Becker MD Unavailable [phone] Francisco Javier Byrne Unavailable Raheel Becker MD Unavailable [phone] Reason for Visit * Reason Comments Refill Request Encounter Details Date Type Department Care Team (Late st Contact Info) Description 06/03/2020 Refill [facility] [address] [place] [address] Shira Sevilla MD [address] [facility] [place] [address] Refill Request Social History Tobacco Use Types Packs/Day Years Used Date Smoking Tobacco: Former Cigarettes 0.2 20 Smokeless Tobacco: Never Alcohol Use Standard Drinks/Week Comments Yes 0.8 (1 standard drink = 0.6 oz p ure alcohol) Citlaly and Movie Fridays Comments No Sex and Gender Information Value Date Recorded Sex Assigned at Female 12/24/2020 10:36 AM CDT Legal Sex 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 Gender Identity Female 12/24/2020 10:36 AM CDT [...] Description 11/13/2024 10:00 AM CDT Office Visit [facility] - Internal Medicine [address] [place] [address] [place] [phone] Raheel Becker MD [address] [place] [phone] documented as of this encounter Visit Diagnoses Not on filedocumented in this encounter Care Teams Machine Crater Relationship Specialty Start Date End Date Shay Johnson MD PCP - General Internal Medicine 01/04/19 09/28/22 Shay Johnson MD [address] [place] [address] PCP - Attributed-[facility] 11/03/18 Pcp, [facility] PCP - General 09/29/22 10/24/22 Raheel Becker MD [address] [place] [phone] PCP - General Internal Medicine 10/25/22 Raheel Becker MD [address] [place] [phone] PCP - Attributed-[facility] 12/03/22 Raheel Becker MD [address] [facility] [address] [place] [address] PCP - Attributed-[facility] P4P 09/03/23 Francisco Javier Byrne Care Coordination Specialist Care Management 09/10/23 09/10/23 documented as of this encounter
--- OUTSIDE RECORDS SUMMARY | 2024-08-05 02:14 | XMS_ITS | Clinical Summary ---
Author Organization [facility] Address [address] [place] [address] Care Team Providers Care Golf Stud Riveter Name Role Phone Raheel Becker MD Primary Care Provider [phone] Raheel Becker MD Unavailable [phone] Source Comments [facility],non-owned Affiliates and Associated Physician Practices is amultiple site organization consisting of ambulatory clinics and hospital sitesin [place], [place], [place] and [place]. This disclosure is being madepursuant to the Care Everywhere program and may not contain all information available regarding this patient. Last updated 17.[facility] Allergies No known active allergies Medications * This document contains information received from the source organization and may not represent a complete record from that organization. * Be aware that medications may not be up to date on this document. Alwaysverify current medications with the patient. Multiple Vitamins-Minerals (ONE-A-DAY 50 PLUS PO) Active traZODone (Desyrel) 50 MG tabletIndications:I nsomnia, unspecified type Take 2 (two) tablets by mouth at bedtime 180 tablet 4 4 Active buPROPion XL 24hr (Wellbutrin-XL) 300 MG tablet Take 1 (one) tablet by mouth once daily 30 tablet 5 4 Active hydroCHLOROthiazide (Hydrodiuril) 25 MG tablet Take 1 (one) tablet by mouth once daily 90 tablet 1 4 Active rosuvastatin (Crestor) 10 MG tabletIndications:H yperlipidemia LDL goal <100 Take 1 (one) tablet by mouth once daily 100 tablet 4 5 Active meloxicam (Mobic) 15 MG tablet TAKE 1 TABLET BY MOUTH EVERY DAY 90 tablet 5 Active fluticasone propionate (Flonase) 50 MCG/ACT nasal sprayIndications:PN D (paroxysmal nocturnal dyspnea) SPRAY 2 SPRAYS INTO EACH NOSTRIL EVERY DAY 48 g 1 5 Active HYDROcodone-acetami nophen ([place]) 5-325 MG tabletIndications:P rimary osteoarthritis of left hip Take 1 (one) tablet by mouth every 6 hours as needed for Pain 20 tablet 5 07/18/19 25 Active Problems Problem Noted Date Diagnosed Date Balance problem 05/25/2021 Tendinopathy of right rotator cuff 05/24/2020 Primary osteoarthritis involving multiple joints 04/30/2020 Moderate episode of recurrent major depressive d isorder 04/02/2020 Overview (04/02/2020): Barby Sepulveda, COMPUTER TECHNICIAN-SINK CUTTER 11/28/2019 Full code status 09/04/2016 HLD (hyperlipidemia) 12/29/2014 Overview (10/25/2022): 10 year CVD risk intermediate at 10.8% 10/25/2022 Chronic back pain 11/03/2014 Assessment & Plan (05/01/2023 11:23 AM TREE INSPECTOR): Multiple spinal fusions Left lower extremity adversely affected Neuropathy 11/03/2014 Resolved Problems Problem Noted Date Diagnosed Date Resolved Date Depression 02/07/2019 06/17/2024 Congestive heart failure, un specified HF chronicity, unspecified heart failure type 02/07/2019 10/25/2022 Overview (02/07/2019): Shay Johnson MD 02/07/2019 Vitamin D deficiency 10/29/2017 024 Encounters Date Type Department Care Team Description 07/16/2024 Telephone [facility] - Internal Medicine [address] [phone] Raheel Becker MD Record Request 07/15/2024 Telephone [facility] Internal Medicine [address] [place] [phone] Raheel Becker MD Results 06/24/2024 Orders Only [facility] Internal Medicine [address] [place] [phone] Raheel Becker MD Pre-op exam 06/18/2024 Results Follow-Up [facility] Internal Medicine [address] [place] [phone] Raheel Becker MD 06/17/2024 10:40 AM CDT Office Visit [facility] Medicine [address] [place] [phone] Raheel Becker MD Pre-op exam (Primary Dx); Primary osteoarthritis of left hip; Moderate episode of recurrent major depressive disorder (HCC); Hyperlipidemia, unspecified hyperlipidemia type; Balance problem; Chronic low back pain, unspecified back pain laterality, unspecified whether sciatica present 05/28/2024 Telephone [facility] Internal Medicine [address] [place] [phone] Raheel Becker MD Pre-op Clearance 05/16/2024 Refill [facility] Internal Medicine [address] [place] [phone] Raheel Becker MD Med Change Request 05/09/2024 Refill [facility] Internal Medicine [address] [place] [phone] aRheel Becker MD Refill Request from Last 3 Months Immunizations Immunization Administration Dates Next Due Covid [email or web address] primary monoval ent 12+ yr 0.3mL Purple [...] AM CDT Legal Sex Female 6:33 AM TREE INSPECTOR Gender Identity Female 12/24/2020 10:36 AM CDT [...] 10:19 AM CDT Height 167.6 cm (5' 5.98) 06/17/2024 10:19 AM C DT Body Mass Index 22.77 06/17/2024 10:19 AM CDT Plan of Treatment Upcoming Encounters Date Type Department Care Team (Late st Contact Info) Description 11/13/2024 10:00 AM CDT Office Visit [facility] - Internal Medicine [address] [facility] [address] [place] [phone] Raheel Becker MD [address] [phone] Health Maintenance Due Date Last [...] ENDOSCOPY, COLON, SCREENING Routine 01/09/2023 10:39 AM TREE INSPECTOR Screen for colon cancer Personal history of [...] 8:11 AM CDT Performed at: 01 - [address] [id number] Fellmongery Worker: Kurtis Law PhD, Phone: [phone] us Raheel Becker MD LAB - CHEMISTRY ORDERABLES Fi nal Result [facility] ACCOUNT BILL [address] [place] [address] * VITAMIN D 25-HYDROXY (06/17/2024 11:15 AM CDT) Vitamin D, 25 Hydroxy 36.7 30.0 - 100.0 ng/mL [facility] ACCOUNT BILL Comment: Vitamin D deficiency has been defined by the [employer] and an Endocrine Society practice guideline as a level of serum 25-OH vitamin D less than 20 ng/mL (1,2). The Endocrine Society went on to further define vitamin D insufficiency as a level between 21 and 29 ng/mL (2). 1. IOM ([employer] of Medicine). 2010. Dietary reference intakes for [...] 7:09 AM CDT Performed at: 01 - [facility] [id number] [facility] [place], [place] [id number] Fellmongery Worker: Kurtis Law PhD, Phone: [phone] us Raheel Becker MD LAB - CHEMISTRY ORDERABLES Fi nal Result [facility] ACCOUNT BILL [address] [place] [address] * CBC WITH DIFFERENTIAL (06/17/2024 11:15 AM [...] 12:07 AM CDT Performed at: 01 - [facility] [id number] Fellmongery Worker: Kurtis Law PhD, Phone: [phone] us Raheel Becker MD LAB - HEMATOLOGY ORDERABLES F inal Result [facility] ACCOUNT BILL [address] [place] [address] * COMPREHENSIVE METABOLIC PANEL (06/17/2024 11:15 AM CDT) Pathologist [facility] Glucose 99 70 - 99 mg/dL [facility] [...] 7:09 AM CDT Performed at: 01 - [facility] [id number] Fellmongery Worker: Kurtis Law PhD, Phone: [phone] us Raheel Becker MD LAB - CHEMISTRY ORDERABLES Fi nal Result Performing Organization Address City/[facility]/ZIP Co de Phone Number [facility] ACCOUNT BILL [address] [place] [address] * LIPID PROFILE (06/17/2024 11:15 AM CDT) [facility] Cholesterol 171 100 - 199 mg/dL [...] 8:11 AM CDT Performed at: 01 - [address] [id number] Fellmongery Worker: Kurtis Law PhD, Phone: [phone] us Raheel Becker MD LAB - CHEMISTRY ORDERABLES Fi nal Result Performing Organization Address City/[facility]/ZIP Co de Phone Number [facility] ACCOUNT BILL [address] [place] [address] * EKG 12-LEAD (06/17/2024) 06/17/2024 us Raheel Becker MD ECG ORDERABLES Final Result * ENDOSCOPY, COLON, SCREENING (01/09/2023 10:39 AM TREE INSPECTOR) Report Endoscopy POC _ Patient Name: Diana Keen Procedure Date: 01/09/2023 10:39 AM Date of : 1950 Admit Type: Outpatient Age: 72 Gender: Female Ethnicity: Not or Race: White Attending MD: Lianna Bhardwaj MD, [id number] _ Procedure: Colonoscopy Indications: Surveillance: Personal history [...] pathology results. Procedure Code(s): --- Professional --- 20512, Colonoscopy, flexible; with biopsy, single or multiple --- Technical --- 42426, Colonoscopy, flexible; with biopsy, single or multiple [...] or abscess without bleeding CPT copyright 2020 [employer]. All rights reserved. The codes documented in this report are preliminary and upon nub card tender review may be revised to meet current compliance requirements. Lianna Bhardwaj MD 01/09/2023 12:13:55 PM This report has been signed electronically. Number of Addenda: 0 Note Initiated On: 01/09/2023 10:39 AM [facility] 01/09/2023 10:3 9 AM TREE INSPECTOR Narrative Procedure Note Lianna Bhardwaj MD - 01/09/2023 12:14 PM CST Colonoscopy Small asc colon polyp resected, not retrieved Rpt 5 yrs D/w diana us Lianna Bhardwaj MD GI PROCEDURE ORDERABLES Edited R esult - Final [facility] * MAMMO BILAT SCREENING W DEEDEE [...] Steen MD on 11/23/2017 at 1:08 PM Anahi Ma MD DEXA ORDERABLES Final Result [...] include test code 8472. Test Performed at: [facility] [address] [place] [address] DONNA HEREDIA DO,MPH 12/21/2014 8:18 AM CDT 12/21/2014 8:20 AM CDT Anahi Ma MD LAB - CHEMISTRY ORDERABLES F inal Result [facility] [address] [place] [address] from Last 3 Months or Most Recently Relevant to Health Maintenance Insurance Member Subscriber Plan / Payer (Ef fective 2023-Present) Name:Diana Keen Hang Relation to Subscriber:Self Name:Diana Keen Payer ID:[id number] (NAIC) Type:Medicare-Managed Care Address: [place] [id number] [place] [id number] [place] [address] CARE Advance Directives * Full Code (Latest Code Status on File) Date Activated Date Inactivated Comments 09/04/2016 12:05 PM 01/09/2023 10:13 AM Care Teams Golf Stud Riveter Relationship Specialty Start Date End Date Raheel Becker MD [address] [place] [phone] PCP - General Internal Medicine 10/25/22 Raheel Becker MD [address] [place] [phone] PCP - Attributed-[facility] P4P 09/03/23
--- OUTSIDE RECORDS SUMMARY | 2024-08-05 02:14 | XMS_ITS | Continuity of Care Document ---
Author Organization [email or web address] Address [address] [facility] [address] [place] [address] Phone Care Team Providers Care Weather Analyst Name Role Phone Kev Flores MD Unavailable [...] Copied on Encounter [facility], [address] [place] [address], [place], [place], [id number], tel:[phone] [facility] Pseudophakia OU (chief complaint)Bum p LLL (chief complaint) Pseudophakia Other vitreous opacities, bilateralDry eye syndrome of bilateral lacrimal glands 1 Mark Angulo. [address] [place] [address], [address], [place], [place], [id number], [place]. tel:[phone] Referring Provider: Kev Callahan, [address] [place] [address] Suite [facility], [place], [address]. tel:[phone] [facility], [address] [place] [address], [place], [place], [id number], tel:[phone] [facility] looks like pulled cotton around vision OU (chief complaint)hea daches, halos around lights OU (chief complaint) No Information 7 Mark Angulo. [address] [place] [address], [address], [place], [place], [id number], [place]. tel:[phone] Referring Provider: Kev Callahan, [address] [place] [address] [address], [place], [address]. tel:[phone] [facility], [address] [place] [address], [place], [place], [id number], tel:[phone] [facility] No Information 7 Mark Angulo. [address] [place] [address], [address], [place], [place], [address], [place]. tel:[phone] Referring Provider: Kev Callahan, [address] [place] [address] [address], [place], [address]. tel:[phone] [facility], [address] [place] [address], [id number], [place] tel:[phone] [facility] No Information 7 Mark Angulo. [address], [address], [place], [place], [address], [place]. tel:[phone] Referring Provider: Kev Callahan, [address] [place] [address] [address], [place], [address]. tel:[phone] OFFICE/OUTPA TIENT VISIT, EST [facility], [address] [place] [address], [place], [place], [id number], [place] tel:[phone] [facility] cloudy vision (chief complaint) Other secondary cataract, bilateralOth er vitreous opacities, bilateralPse udophakia Dec- 7 Mark Angulo. [address] [place] [address], [address], [place], [place], [address], [place]. tel:[phone] Referring Provider: Kev Callahan, [address] [place] [address] [address], [place], [address]. tel:[phone] [facility], [address] [place] [address], [place], [place], [id number], [place] tel:[phone] [facility] blurry vision OU (chief complaint) No Information 7 Mark Angulo. [address] [place] [address], [address], [place], [place], [address], [place]. tel:[phone] Referring Provider: Kev Callahan, [address] [place] [address] [address], [place], [address]. tel:[phone] [facility], [address] [place] [address], [id number], [place] tel:[phone] [facility] foreign body sensation OS (chief complaint)vis ion's a little blurry but pretty good OS (chief complaint) No Information 7 Mark Anuglo. [address] [place] [address], [address], [place], [place], [address], [place]. tel:[phone] Referring Provider: Kev Callahan, [address] [place] [address] [address], [place], [address]. tel:[phone] [facility], [address] [place] [address], [id number], tel:[phone] [facility] [place] No Information 7 Mark Kev. [address] [place] [address], [address], [place], [place], [address], [place]. tel:[phone] Referring Provider: Kev Callahan, [address] [place] [address] [address], [place], [address]. tel:[phone] [facility], [address] [place] [address], [id number], tel:[phone] [facility] CHAVE[facility] foreign body sensation OD (chief complaint) No Information 7 Mark Kev. [address] [place] [address], [place] [address], [place], [place], [id number], [place]. tel:[phone] Referring Provider: Kev Callahan, [address] [place] [address] [address], [place], [address]. tel:[phone] [facility], [address] [place] [address], [id number], [place] tel:[phone] [facility] blurry vision, doing well OD (chief complaint) No Information 7 Mark Kev. [address] [place] [address], [address], [place], [place], [address], [place]. tel:[phone] Referring Provider: Kev Callahan, [address] [place] [address] [address], [place], [address]. tel:[phone] [facility], [address] [place] [address], [id number], [place] tel:[phone] [facility] [place] No Information 7 Mark Kev. [address] [place] [address], [facility] [address], [place], [place], [address], [place]. tel:[phone] Referring Provider: Kev Callahan, [address], [place], [address]. tel:[phone] OFFICE/OUTPA TIENT VISIT, NEW [facility], [address], [place], [place], [id number], [place] tel:[phone] [facility] CHAVEZ blurred vision (chief complaint) Age-related nuclear cataract, bilateralCor tical age-related cataract, bilateralOth er vitreous opacities, bilateral Kevin- 7 Mark Angulo. [address], [address], [place], [place], [address], [place]. tel:[phone] Referring Provider: Kev Callahan, [address], [place], [address]. tel:[phone] Family History Family Member Type Diagnosis Age At Onset Problem Family history of Cardiovasc ular disease Payers Payer name Insurance type Covered libertarian ID Authoriza tion(s) Medicare Complete Advantage [facility] [id number] Social History Type Description Quantity Date Captured [...] vision. Still feels like she has a resighini of blur on the outer rim of [...] vision. Still feels like she has a resighini of blur on the outer rim of [...] condition is significant. Pt was examined at [facility] last week and was told [...] return after [facility] for refraction if realtime court reporter glasses are desired. Related to Pseudophakia Impression/Plan [...] IOL OD then OS std / distRef: [facility] Impression/Plan - OU : No treatment is [...]
--- OUTSIDE RECORDS SUMMARY | 2024-08-05 02:14 | XMS_ITS | Encounter Summary ---
Author Organization [facility] Address [address] [place] [address] Care Team Providers Care Road Roller Operator Hot Mix Name Role Phone Raheel Becker MD Primary Care Provider [phone] Raheel Becker MD Unavailable [phone] Encounter Details Date Type Department Care Team (Late st Contact Info) Description 06/18/2024 Results Follow-Up 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 - Internal Medicine [address] [facility] [address] [place] [address] [place] [address] [place] [address] [place] [id number] documented as of this encounter Visit Diagnoses Not on filedocumented in this encounter Care Teams Road Roller Operator Hot Mix Relationship Specialty Start Date End Date Raheel Becker MD [address] [place] [address] PCP - General Internal Medicine 10/25/22 Raheel Becker MD [address] [place] [address] [facility] - [facility] STCarol P4P 09/03/23 documented as of this encounter
[2024-08-05] MEDS: ACETAMINOPHEN 500 MG TABLET 1000 MG PO (06:55)
[2024-08-05] MEDS: VANCOMYCIN 1,000 MG/NS 250 ML 1,000 MG/250 ML BAG 250 MG IVPB (06:55)
[2024-08-05] MEDS: TRANEXAMIC ACID 1,000MG/ISO100 1,000 MG/100 ML BAG 200 MG IVPB (06:55)
--- NOTE | 2024-08-05 07:10 | WPDHPUPDATE1 ---
History and Physical Update Update Date/Time: 08/05/24 07:10 History and Physical has been reviewed, including an updated exam of the patient. PAtient presents with persistent cough. Claritin last night did not help. Temp 100 this am. Covid and influenza tests ordered. Case has to be cancelled as ithe or schedule cannot accommodate the one hour delay for the test.
[2024-08-05] MEDS: LACTATED RINGERS 1,000 ML 30 ML IV CONT (07:15)
[2024-08-05 07:29] VITALS: BP 150/80; PULSE 107; TEMP 37.7; O2SAT 95; BMI 24.3
[2024-08-05 07:53] LABS: Influenza A QL RT-PCR Negative (Negative); Influenza B QL RT-PCR Negative (Negative); SARS-CoV-2 RNA PCR Negative (Negative)
--- NOTE | 2024-08-05 07:59 | SUR.PREOP ---
Patient was notified of NEGATIVE COVID and FLU results at [address] García AMEZCUA. request. Patient to call office to reschedule procedure.
== END 2024-08-05 07:39 | disposition home or self-care (01) ==
PROVIDERS: Visit Provider Orthopaedic Surgery
PROC: (CPT 27130; principal; 2024-08-05 07:30)
DX: M16.12 Unilateral primary osteoarthritis, left hip (principal); R05.9 Cough, unspecified; R50.9 Fever, unspecified; Z20.822 Contact with and (suspected) exposure to COVID-19; Z53.09 Procedure and treatment not carried out because of other contraindication
CPT/HCPCS: 36415; 86850; 86900; 86901; 87636; 99212; A9270; G0463; J0171; J1885; J2270; J2795; J3370; J7120

== ENCOUNTER 2024-08-27 10:16 | Outpatient (CLI) | payer MEDICARE, SELFPAY ==
[2024-08-27 10:50] LABS: Basophils Absolute Auto 0.1 K/mm3 (0.0-0.1); Basophils Percent Auto 0.8 % (0.2-1.2); Eosinophils Absolute Auto 0.2 K/mm3 (0-0.3); Eosinophils Percent Auto 2.5 % (0-4.4); Hematocrit 38.7 % (37.0-47.0); Hemoglobin 12.4 g/dL (12.0-15.0); Immature Granulocyte Absolute 0.02 K/mm3 (0.00-0.031); Immature Granulocyte Percent A 0.3 % (0-0.5); Lymphocytes Absolute Auto 2.44 K/mm3 (0.9-3.2); Lymphocytes Percent Auto 41.2 % (18.3-44.2); Mean Corpuscular Hemoglobin 29.2 pg (26-34); Mean Corpuscular Volume 91.1 fl (80-100); Mean Platelet Volume 9.9 fl (7.4-10.4); Monocytes Absolute Auto 0.8 K/mm3 (0.1-0.6); Monocytes Percent Auto 13.9 % (2.6-8.5); Neutrophils Absolute Auto 2.4 K/mm3 (1.3-6.7); Neutrophils Percent Auto 41.3 % (45.5-73.1); Platelet Count Result 316 k/mm3 (150-375); Red Blood Count 4.25 M/mm3 (4.2-5.4); Red Cell Distribution Width 13.5 % (11.5-14.5); White Blood Count 5.9 K/mm3 (4.5-10.0)
[2024-08-27 10:59] LABS: Albumin Level 4.4 g/dL (3.5-5.1); Anion Gap 10 mmol/L (4-12); Blood Urea Nitrogen 25 mg/dL (7-17); Calcium 9.5 mg/dL (8.4-10.2); Carbon Dioxide 29 mmol/L (22-30); Chloride 103 mmol/L (98-107); Estimated Glomerular Filt Rate > 60; Glucose 89 mg/dL (65-110); Potassium 3.8 mmol/L (3.4-5.0); Sodium 142 mmol/L (137-145)
== END 2024-08-27 10:17 | disposition home or self-care (01) ==
LOC: ANHSURGERY 10:20
PROVIDERS: Visit Provider Orthopaedic Surgery
DX: M16.12 Unilateral primary osteoarthritis, left hip (principal); Z01.818 Encounter for other preprocedural examination
CPT/HCPCS: 36415; 80048; 82040; 85025; 86850; 86900; 86901

== ENCOUNTER 2024-09-04 01:49 | Day surgery (SDC) | payer MEDICARE, SELFPAY ==
[2024-08-25 11:46] VITALS: BMI 23.5
--- NOTE | 2024-08-25 13:36 | PC.NURSE ---
Report to the Outpatient Waiting Room, entrance under the green pavilion located off [facility], at time ___6:00AM____ on date ___09/04/24____. Planned Procedure Time: ___7:30AM .? Time changes happen often and if your time is changed the preop area will call you the afternoon before. - You and your visitor will be asked to self-screen and do not enter if you have any COVID symptoms. Please call surgeon if you need to reschedule. - A mask is optional within the hospital at this time. Patients may have clear liquids (water, carbonated beverages, clear teas, apple juice) until 3 hours prior to surgery (4:30AM) with a maximum of 20 ounces. - No food from midnight until time of surgery and no smoking, or chewing tobacco (or any form of nicotine). No chewing gum, candy or mints. Take only the following medications with a SIP of water on the morning of surgery: ____BUPROPION. MAY TAKE HYDROCODONE NEEDED FOR PAIN. DO NOT STOP ANY OF YOUR OTHER PRESCRIPTION MEDICATIONS PRIOR TO SURGERY EXCEPT THE FOLLOWING Hold all vitamins and supplements for 3 days per anesthesiologist. Medications to discontinue per physician ____HOLD MELOXICAM(ALL NSAIDS) 7 DAYS PRE-OP PER DR LISA. Date to take last dose 08/27/24. Please no make-up, nail azerbaijani, hairspray, perfume, deodorant, or body powder the day of surgery.? No jewelry (including any body piercings) or valuables the day of surgery, leave them at home.? Please take a shower or bath the night before, or the morning of, surgery with an antibacterial soap.? Wear comfortable, loose fitting clothing.? - Jewelry must be removed prior to entering the operating room.? Rings and piercings that are not removed may be cut off. - The hospital will not accept responsibility for valuables.? - Please leave all valuables, including medications, at home the day of surgery. If you are going home after surgery, a licensed entry driver operator must drive you home.? - NO public transportation without another adult if you receive anesthesia. - We recommend that an adult stay with you for 24 hours following discharge. - We also recommend that you do not drive, make important decision, drink alcoholic beverages, or take any drugs that were not prescribed by your health care provider for at least 24 hours after your discharge time. Follow any additional instructions given to you from your surgeon. Telephone instructions given to ____PATIENT and asked if any additional questions and then verbalized understanding. Patient advised to call surgeon office or pre surgery nurse liaison [phone] if any additional questions.
--- NOTE | 2024-09-03 12:28 | P.HP_ITS ---
H&P: HPI History of Present Illness Date/Time: 09/03/24 12:28 Chief Complaint: Left hip DJD Narrative: 74 female who presents today for a left anterior total hip arthroplasty. Patient has been having symptoms in the hip for over 3 years. She has had 2 cortisone injections in the past 1 being approximately 3 years ago on 03/05 year ago. Last injection gave her minimal to no relief. Patient is on meloxicam 15 mg daily. She has advanced osteoarthritis in the hip. At this point patient is having significant groin and anterior lateral hip pain on a daily basis. It is limiting her activities and she has resolved to using cane on a regular basis due to the symptoms. At this point patient feels she is ready to proceed total hip arthroplasty rather than continue nonsurgical treatment. Review of Systems Review of Systems: All systems reviewed & are unremarkable except as noted in HPI and below PMFSH Surgical History Surgical History (Updated 05/19/24 @ 13:29 by Alexandria Hall CMA) History of spinal surgery spinal fusion twice Disc's removed Social History Social History (Updated 05/19/24 @ 13:28 by Alexandria Hall CMA) Smoking packs per day: 0.2 Smoking cigarettes per day: 4.0 Years smoked: 7 Smoking pack-years: 1.40 Smoking status: Former smoker Tobacco type: cigarettes Smoking end date: 09/03/79 Alcohol intake: current Substance use: never Do You Feel Safe in your Home?: Yes Lack of Transportation: No Lack of Food: Never True Current Housing: I Have Housing Concerned About Future Housing: No Difficulty Paying Gas/Electric Bills: No Difficulty Paying for Meds: No Currently Unemployed: No Education: Associate Degree Difficulty w/ Childcare or Family Care: No Living arrangements: alone Spiritual care concerns: No Meds Home Medications and Allergies Home Medications ?Medication ?Instructions ?Recorded ?Confirmed ?Type bupropion HCl 300 mg 24 hr tablet, 300 mg PO QAM 05/19/24 08/25/24 History extended release cholecalciferol (vitamin D3) 25 25 mcg PO DAILY 05/19/24 08/25/24 History mcg (1,000 unit) capsule fluticasone propionate 50 2 spray intranasal DAILY 05/19/24 08/25/24 History mcg/actuation nasal spray,suspension hydrochlorothiazide 25 mg tablet 25 mg PO DAILY 05/19/24 08/25/24 History meloxicam 15 mg tablet 15 mg PO DAILY 05/19/24 08/25/24 History multivitamin (Daily Multi-Vitamin 1 tablet PO DAILY 05/19/24 08/25/24 History tablet) oxybutynin chloride 5 mg tablet 5 mg PO DAILY 05/19/24 08/25/24 History rosuvastatin 10 mg tablet 10 mg PO DAILY 05/19/24 08/25/24 History cyanocobalamin (vitamin B-12) 3,000 mcg PO DAILY 07/15/24 08/25/24 History 3,000 mcg capsule hydrocodone 5 mg-acetaminophen 325 1 tablet PO Q12H PRN pain 07/15/24 08/25/24 H istory mg tablet hydrocodone 5 mg-acetaminophen 325 1 tablet PO Q4H PRN pain #30 tabs 08/15/24 08/25/24 Rx mg tablet Allergies Allergy/AdvReac Type Severity Reaction Status Date / Time No Known Allergies Allergy Verified 08/25/24 11:43 Exam Narrative: 74-year-old female alert. She is 5 ft 5 149 lb BMI is 24. Left hip range of motion is from 10-90 degrees, internal rotation is 5? short of neutral external rotation to 30. With full flexion and rotation she has into lateral hip pain. Stinchfield maneuver causes her anterior lateral hip pain. She has normal abduction strength. 2+ dorsalis pedis and posterior tibial artery pulse palpable. No edema in lower extremities. Skin around the hip and groin crease are normal. She has mild weakness with dorsiflexion of the left ankle. This is been chronic from previous low back surgery. Otherwise she has normal motor function all other muscle groups left lower extremity. She has decreased sensation to the lateral calf to light touch as well is the plantar aspect and midfoot left foot Resp: Auscultation: clear to auscultation bilaterally Cardio: Rate: regular rate Rhythm: regular rhythm Assessment and Plan Assessment and plan (1) Primary osteoarthritis of left hip: Code(s): M16.12 - Unilateral primary osteoarthritis, left hip Status: Acute Plan 74-year-old female who has severe osteoarthritis left hip with continued symptoms daily patient feels she is ready proceed with total hip arthroplasty at this point. Surgical procedures well as the risks complications were discussed in detail all questions were answered and we will proceed. Patient will see her primary care doctor pre-surgical clearance. She will stop her meloxicam 7 days prior to surgery. Patient's nasal swab was negative. Hemoglobin 12.4 platelets are 316. Chem panel is all within normal limits creatinine 0.78
[2024-09-04] VITALS (13 sets, daily range): BP systolic 102–144; BP diastolic 60–94; PULSE 68–93; RESP 12–18; TEMP 36.2–36.8; O2SAT 95–100; BMI 23.1
--- NOTE | ~2024-09-04 | XR_ITS ---
EXAMINATION: XR surgery orthopedic DATE: 09/04/2024 11:13 INDICATION: Intraoperative evaluation during left total hip arthroplasty the left hip was obtained. TECHNIQUE: 2 fluoroscopic images of the left hip were obtained during procedure performed by Dr. Floyd moyer. Radiologist was not present for the imaging or procedure. The amount of fluoroscopy time used du ring this procedure was 1.3 minutes. Total DAP was 0.373 mGym^2. COMPARISON: 05/19/2024 FINDINGS: Images demonstrate placement of a left total hip arthroplasty which appears in near-anatomic alignmen t on the frontal projections. Acetabular component is affixed with at least a single screw. No fractu res identified. Expected small amount of soft tissue gas at the operative bed. IMPRESSION: 1. Placement of a left total hip arthroplasty in near-anatomic alignment. See procedure note for furt her detail. Reviewed, dictated and finalized at location B. IMPRESSION: 1. Placement of a left total hip arthroplasty in near-anatomic alignment. See p rocedure note for further detail.
--- NOTE | ~2024-09-04 | XR_ITS ---
EXAMINATION: XR hip LT 1V w AP pelvis DATE: 09/04/2024 11:58 INDICATION: Left total hip arthroplasty TECHNIQUE: Anteroposterior view of the pelvis excluding the iliac crests and cross-table lateral view s of the left hip were obtained. COMPARISON: 05/19/2024 FINDINGS: Interval placement of a noncemented left total hip arthroplasty which is in near-anatomic alignment. Acetabular component is affixed with a single screw. Partially visualized postoperative changes of th e lower lumbar instrumented anterior and posterior spinal fusion with interbody bone graft cages, ant erior plate and screw fixations and bilateral vertical levon and pedicle screw fixations. Mild to moder ate right hip osteoarthritis and mild bilateral sacroiliac osteoarthritis. Multiple phlebolith in the pelvis. Surgical drain and expected small amount of soft tissue gas at the operative bed about the l eft hip. IMPRESSION: 1. No replaced noncemented left total hip arthroplasty which is near-anatomic alignment, negative for postoperative purposes. Reviewed, dictated and finalized at location B. IMPRESSION: 1. No replaced noncemented left total hip arthroplasty which is near-anatomic a lignment, negative for postoperative purposes.
--- OUTSIDE RECORDS SUMMARY | 2024-09-04 01:51 | XMS_ITS | Clinical Summary ---
Author Organization [facility] Address [address] [facility] [place] [address] Care Team Providers Care Associate Professor Name Role Phone Raheel Becker MD Primary Care Provider [phone] Raheel Becker MD Unavailable [phone] [facility],non-owned Affiliates and Associated Physician Practices is amultiple site organization consisting of ambulatory clinics and hospital sitesin [place], [place], [place] and [place]. This disclosure is being madepursuant to the Care Everywhere program and may not contain all information available regarding this patient. Last updated 17.[facility] Allergies No known active allergies Medications * This document contains information received from the source organization and may not represent a complete record from that organization. * Be aware that medications may not be up to date on this document. Alwaysverify current medications with the patient. Multiple Vitamins-Minera ls (ONE-A-DAY 50 PLUS PO) Active traZODone (Desyrel) 50 MG tabletIndicatio ns:Insomnia, unspecified type Take 2 (two) tablets by mouth at bedtime 180 tablet 4 4 Active buPROPion XL 24hr (Wellbutrin-XL) 300 MG tablet Take 1 (one) tablet by mouth once daily 30 tablet 5 4 Active hydroCHLOROthia zide (Hydrodiuril) 25 MG tablet Take 1 (one) tablet by mouth once daily 90 tablet 1 4 Active rosuvastatin (Crestor) 10 MG tabletIndicatio ns:Hyperlipidem ia LDL goal <100 Take 1 (one) tablet by mouth once daily 100 tablet 4 5 Active fluticasone propionate (Flonase) 50 MCG/ACT nasal sprayIndication s:PND (paroxysmal nocturnal dyspnea) SPRAY 2 SPRAYS INTO EACH NOSTRIL EVERY DAY 48 g 1 5 Active meloxicam (Mobic) 15 MG tablet TAKE 1 TABLET BY MOUTH EVERY DAY 90 tablet 5 Active oxyBUTYnin CR 24hr (Ditropan-XL) 5 MG tablet TAKE 1 TABLET BY MOUTH EVERY DAY 90 tablet 1 5 Active meloxicam (Mobic) 15 MG tablet TAKE 1 TABLET BY MOUTH EVERY DAY 90 tablet 5 025 Discontinued Active Problems Problem Noted Date Diagnosed Date Balance problem 05/25/2021 Tendinopathy of right rotator cuff 05/24/2020 Primary osteoarthritis involving multiple joints 04/30/2020 Moderate episode of recurrent major depressive d isorder 04/02/2020 Overview (04/02/2020): Barby Sepulveda, FILING AND POLISHING SUPERVISOR-VOICE OVER ANNOUNCER 11/28/2019 Full code status 09/04/2016 HLD (hyperlipidemia) 12/29/2014 Overview (10/25/2022): 10 year CVD risk intermediate at 10.8% 10/25/2022 Chronic back pain 11/03/2014 Assessment & Plan (05/01/2023 11:23 AM CMM OPERATOR): Multiple spinal fusions Left lower extremity adversely affected Neuropathy 11/03/2014 Resolved Problems Problem Noted Date Diagnosed Date Resolved Date Depression 02/07/2019 06/17/2024 Congestive heart failure, un specified HF chronicity, unspecified heart failure type 02/07/2019 10/25/2022 Overview (02/07/2019): Shay Johnson MD 02/07/2019 Vitamin D deficiency 10/29/2017 024 Encounters Date Type Department Care Team Description 08/21/2024 Refill [facility] - Internal Medicine [address] [place] [phone] Raheel Becker MD Refill Request 08/14/2024 Refill [facility] Internal Medicine [address] [place] [phone] Raheel Becker MD Refill Request 07/16/2024 Telephone [facility] Internal Medicine [address] [place] [phone] Raheel Becker MD Record Request 07/15/2024 Telephone [facility] Internal Medicine [address] [place] [phone] Raheel Becker MD Results 06/24/2024 Orders Only [facility] Internal Medicine [address] [place] [phone] Raheel Becker MD Pre-op exam 06/18/2024 Results Follow-Up [facility] Internal Medicine [address] [place] [phone] Raheel Becker MD 06/17/2024 10:40 AM CDT Office Visit [facility] Internal Medicine [address] [place] [phone] Raheel Becker MD Pre-op exam (Primary Dx); Primary osteoarthritis of left hip; Moderate episode of recurrent major depressive disorder (HCC); Hyperlipidemia, unspecified hyperlipidemia type; Balance problem; Chronic low back pain, unspecified back pain laterality, unspecified whether sciatica present from Last 3 Months Immunizations Immunization Administration Dates Next Due Local[employer] primary monoval ent 12+ yr 0.3mL Purple [...] AM CDT Legal Sex Female 6:33 AM CMM OPERATOR Gender Identity Female 12/24/2020 10:36 AM CDT [...] Description 11/13/2024 10:00 AM CDT Office Visit [facility] - Internal Medicine [address] [place] [address] [place] [address] [place] [address] [address] [place] [address] Health Maintenance Due Date Last Done Comments COLOGUARD (AGES 45-75) - COLON CA SCREENING 1950 CT COLONOGRAPHY - COLON CA SCREENING 1950 FIT - COLON CA SCREENING 1950 FLEX SIG - COLON CA SCREENING 1950 ZOSTER VACCINE (1 of 2) 02/24/2000 COVID-19 VACCINE ( season) 2024 02/12/2024, 12/25/2021, 12/27/2020, Additional history exists MAMMOGRAM 10/28/2024 10/28/2022, 07/2020, 01/04/2019, Additional history exists DTAP/TDAP/TD VACCINES (2 - Td or Tdap) 09/04/2026 09/04/2016 COLON MONITORING 01/10/2028 01/09/2023, 09/2022, 01/09/2023, Additional history exists Colorectal Cancer Screening 01/10/2028 COLONOSCOPY - COLON CA SCREENING 01/09/2033 01/09/2023, 01/09/2023, 01/09/2023, Additional history exists HEPATITIS C SCREENING Completed 12/21/2014 PNEUMOCOCCAL VACCINE 50+ Completed 10/26/2017, 05/2016 BONE DENSITY TESTING Completed 11/23/2017 Respiratory [...] ENDOSCOPY, COLON, SCREENING Routine 01/09/2023 10:39 AM CMM OPERATOR Screen for colon cancer Personal history of [...] 8:11 AM CDT Performed at: 01 - [address] [id number] Budget Engineer: Kurtis Law PhD, Phone: [phone] us Raheel Becker MD LAB - CHEMISTRY ORDERABLES Fi nal Result Performing Organization Address City/State/[facility] Co de Phone Number [facility] ACCOUNT BILL [address] [place] [address] * VITAMIN D 25-HYDROXY (06/17/2024 11:15 AM CDT) Vitamin D, 25 Hydroxy 36.7 30.0 - 100.0 ng/mL [facility] ACCOUNT BILL Comment: Vitamin D deficiency has been defined by the [place] of [employer] and an Endocrine Society practice guideline as a level of serum 25-OH vitamin D less than 20 ng/mL (1,2). The Endocrine Society went on to further define vitamin D insufficiency as a level between 21 and 29 ng/mL (2). 1. IOM ([place] of Medicine). 2010. Dietary reference intakes for calcium and D. [place]: The National Academies Press. 2. Gretchen MF, Malorie DOYLE, Deon BOWLES, et al. Evaluation, treatment, and prevention of vitamin D deficiency: an Endocrine Society clinical practice guideline. JCEM. 2010; 96(7):1911-30. Blood BLOOD SPECIMEN / Unknown 06/17/2024 11:15 AM CDT 06/17/2024 Narrative [facility] ACCOUNT BILL - 06/18/2024 7:09 AM CDT Performed at: 01 - [facility] [id number] [place], [place] [id number] Budget Engineer: Kurtis Law PhD, Phone: [phone] us Raheel Becker MD LAB - CHEMISTRY ORDERABLES Fi nal Result [facility] ACCOUNT BILL [address] [place] [address] * CBC WITH DIFFERENTIAL (06/17/2024 11:15 AM [...] 12:07 AM CDT Performed at: 01 - [facility] [address] [place], [place] [id number] Budget Engineer: Kurtis Law PhD, Phone: [phone] us Raheel Becker MD LAB - HEMATOLOGY ORDERABLES F inal Result [facility] ACCOUNT BILL [address] [place] [address] * COMPREHENSIVE METABOLIC PANEL (06/17/2024 11:15 AM CDT) [facility] Glucose 99 70 - 99 mg/dL [facility] [...] - 06/18/2024 7:09 AM CDT Performed at: [address] [id number] Budget Engineer: Kurtis Law PhD, Phone: [phone] us Raheel Becker MD LAB - CHEMISTRY ORDERABLES Fi nal Result Performing Organization Address [facility] Co de Phone Number [facility] ACCOUNT BILL [address] [place] [address] * LIPID PROFILE (06/17/2024 11:15 AM CDT) Cholesterol 171 100 - 199 mg/dL [facility] [...] - 06/18/2024 8:11 AM CDT Performed at: [address] [id number] Budget Engineer: Kurtis Law PhD, Phone: [phone] us Raheel Becker MD LAB - CHEMISTRY ORDERABLES Fi nal Result Performing Organization Address [facility] Co de Phone Number [facility] ACCOUNT BILL [address] [place] [address] * EKG 12-LEAD (06/17/2024) 06/17/2024 us Raheel Becker MD ECG ORDERABLES Final Result * ENDOSCOPY, COLON, SCREENING (01/09/2023 10:39 AM CMM OPERATOR) Report Endoscopy POC _ Patient Name: Diana Keen Procedure Date: 01/09/2023 10:39 AM Date of : 1950 Admit Type: Outpatient Age: 72 Gender: Female Ethnicity: Not or Race: White Attending MD: Lianna Bhardwaj MD, [id number] _ Procedure: Colonoscopy Indications: Surveillance: Personal history [...] pathology results. Procedure Code(s): --- Professional --- 85284, Colonoscopy, flexible; with biopsy, single or multiple --- Technical --- 70650, Colonoscopy, flexible; with biopsy, single or multiple [...] or abscess without bleeding CPT copyright 2020 [employer]. All rights reserved. The codes documented in this report are preliminary and upon manufacturing millwright review may be revised to meet current compliance requirements. Lianna Bhardwaj MD 01/09/2023 12:13:55 PM This report has been signed electronically. Number of Addenda: 0 Note Initiated On: 01/09/2023 10:39 AM [facility] ENDOSCOPY 01/09/2023 10:3 9 AM CMM OPERATOR Narrative Procedure Note Lianna Bhardwaj MD - 01/09/2023 12:14 PM CST Colonoscopy Small asc colon polyp resected, not retrieved Rpt 5 yrs D/w diana us Lianna Bhardwaj MD GI PROCEDURE ORDERABLES Edited R esult - Final [facility] ENDOSCOPY * MAMMO BILAT SCREENING W DEEDEE [...] Hip fracture: 0.6% Procedure Note Iwona Steen, - 11/23/2017 BONE MINERAL DENSITY STUDY: INDICATION: [...] include test code 8472. Test Performed at: [facility] [address] [place] [address] DONNA HEREDIA DO,MPH 12/21/2014 8:18 AM CDT 12/21/2014 8:20 AM CDT Anahi Ma MD LAB - CHEMISTRY ORDERABLES F inal Result [facility] [address] [place] [address] from Last 3 Months or Most Recently Relevant to Health Maintenance Insurance [facility] MANAGED MEDICARE ADV Advance Directives * Full Code (Latest Code Status on File) Date Activated Date Inactivated Comments 09/04/2016 12:05 PM 01/09/2023 10:13 AM Care Teams Associate Professor Relationship Specialty Start Date End Date Raheel Becker MD [address] [place] [id number] PCP - General Internal Medicine 10/25/22 Raheel Becker MD [address] [place] [address] PCP - Replaced By [facility] BEL ASTUDILLO P4 09/03/23
--- OUTSIDE RECORDS SUMMARY | 2024-09-04 01:51 | XMS_ITS | Continuity of Care Document ---
Author Organization [facility] Address [address] [facility] [address] [place] [address] Phone Care Team Providers Care Speeder Hand Name Role Phone Kev Flores MD Unavailable [...] Copied on Encounter [facility], [address] [place] [address], [place], [place], [id number], tel:[phone] [facility] Pseudophakia OU (chief complaint)Bum p LLL (chief complaint) Pseudophakia Other vitreous opacities, bilateralDry eye syndrome of bilateral lacrimal glands 1 Mark Angulo. [address] [place] [address], [address], [place], [place], [id number], [place]. tel:[phone] Referring Provider: Kev Callahan, [address] [place] [address] Suite [facility], [place], [address]. tel:[phone] [facility], [address] [place] [address], [place], [place], [id number], tel:[phone] [facility] looks like pulled cotton around vision OU (chief complaint)hea daches, halos around lights OU (chief complaint) No Information 7 Mark Angulo. [address] [place] [address], [address], [place], [place], [id number], [place]. tel:[phone] Referring Provider: Kev Callahan, [address] [place] [address] [address], [place], [address]. tel:[phone] [facility], [address] [place] [address], [place], [place], [id number], tel:[phone] [facility] No Information 7 Mark Angulo. [address] [place] [address], [address], [place], [place], [id number], [place]. tel:[phone] Referring Provider: Kev Callahan, [address] [place] [address] [address], [place], [address]. tel:[phone] [facility], [address] [place] [address], [id number], [place] tel:[phone] [facility] No Information 7 Mark Angulo. [address] [facility], [address], [place], [place], [address], [place]. tel:[phone] Referring Provider: Kev Callahan, [address] [place] [address] [address], [place], [address]. tel:[phone] OFFICE/OUTPA TIENT VISIT, EST [facility], [address] [place] [address], [place], [id number], [place] tel:[phone] [facility] cloudy vision (chief complaint) Other secondary cataract, bilateralOth er vitreous opacities, bilateralPse udophakia Dec- 7 Mark Angulo. [address] [place] [address], [address], [place], [place], [id number], [place]. tel:[phone] Referring Provider: Kev Callahan, [address] [place] [address] [address], [place], [address]. tel:[phone] [facility], [address] [place] [address], [place], [place], [id number], [place] tel:[phone] [facility] blurry vision OU (chief complaint) No Information 7 Mark Angulo. [address] [place] [address], [address], [place], [place], [id number], [place]. tel:[phone] Referring Provider: Kev Callahan, [address] [place] [address] [address], [place], [address]. tel:[phone] [facility], [address] [place] [address], [id number], [place] tel:[phone] [facility] foreign body sensation OS (chief complaint)vis ion's a little blurry but pretty good OS (chief complaint) No Information 7 Mark Angulo. [address] [place] [address], [address], [place], [place], [address], [place]. tel:[phone] Referring Provider: Kev Callahan, [address] [place] [address] [address], [place], [address]. tel:[phone] [facility], [address] [place] [address], [id number], tel:[phone] [facility] [place] No Information 7 Mark Kev. [address] [place] [address], [address], [place], [id number], [place]. tel:[phone] Referring Provider: Kev Callahan, [address] [place] [address] [address], [place], [address]. tel:[phone] [facility], [address] [place] [address], [id number], tel:[phone] [facility] foreign body sensation OD (chief complaint) No Information 7 Mark Kev. [address] [place] [address], [place] [address], [place], [place], [id number], [place]. tel:[phone] Referring Provider: Kev Callahan, [address] [place] [address] [address], [place], [address]. tel:[phone] [facility], [address] [place] [address], [id number], [place] tel:[phone] [facility] blurry vision, doing well OD (chief complaint) No Information 7 Mark Kev. [address] [place] [address], [address], [place], [place], [id number], [place]. tel:[phone] Referring Provider: Kev Callahan, [address] [place] [address] [address], [place], [address]. tel:[phone] [facility], [address] [place] [address], [id number], [place] tel:[phone] [facility] [place] No Information 7 Mark Kev. [address] [place] [address], [facility] [address], [place], [place], [id number], [place]. tel:[phone] Referring Provider: Kev Callahan, [address] [facility] [address], [place], [address]. tel:[phone] OFFICE/OUTPA TIENT VISIT, NEW [facility], [address], [place], [place], [id number], [place] tel:[phone] [facility] blurred vision (chief complaint) Age-related nuclear cataract, bilateralCor tical age-related cataract, bilateralOth er vitreous opacities, bilateral Kevin- 7 Mark Angulo. [address] [facility], [address], [place], [place], [id number], [place]. tel:[phone] Referring Provider: Kev Callahan, [address] [facility] [address], [place], [address]. tel:[phone] Family History Family Member Type Diagnosis Age At Onset Problem Family history of Cardiovasc ular disease Payers Payer name Insurance type Covered green party ID Authoriza tion(s) Medicare Complete Advantage [facility] [id number] Social History Type Description Quantity Date Captured [...] Reason For Visit From encounter dated '01/13/2021 07:30'. Pseudophakia OU (chief complaint). Description: The 70 year old female presents for evaluation of Pseudophakia OU. Patient says that she isn't noticing any changes with her vision. Still feels like she has a pedro bay of blur on the outer rim of [...] vision. Still feels like she has a pedro bay of blur on the outer rim of [...] condition is significant. Pt was [facility] week and was told to have [...] return after [facility] for refraction if time buyer glasses are desired. Related to Pseudophakia Impression/Plan [...] IOL OD then OS std / [facility]: [facility] Impression/Plan - OU : No treatment [...]
--- OUTSIDE RECORDS SUMMARY | 2024-09-04 01:51 | XMS_ITS | Encounter Summary ---
Author Organization [facility] Address [address] [place] [address] Care Team Providers Care Gravity Prospecting Observer Helper Name Role Phone Shay Johnson MD Primary Care Provider [phone] Shay Johnson MD Unavailable + Pcp, [facility] Primary Care Provider Unavailable Raheel Becker MD Primary Care Provider [phone] Raheel Becker MD Unavailable [phone] Francisco Javier Byrne Unavailable Raheel Becker MD Unavailable [phone] Reason for Visit * Reason Comments Refill Request Encounter Details Date Type Department Care Team (Late st Contact Info) Description 06/03/2020 Refill [facility] [address] [place] [address] Shira Sevilla MD [address] [facility] [place] [address] Refill Request Social History Tobacco Use Types Packs/Day Years Used Date Smoking Tobacco: Former Cigarettes 0.2 20 Smokeless Tobacco: Never Alcohol Use Standard Drinks/Week Comments Yes 0.8 (1 standard drink = 0.6 oz p ure alcohol) Citlaly and Movie Fridays Comments No Sex and Gender Information Value Date Recorded Sex Assigned at Female 12/24/2020 10:36 AM CDT Legal Sex Female 6:33 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 Gender Identity Female 12/24/2020 10:36 AM CDT [...] Description 11/13/2024 10:00 AM CDT Office Visit [facility] - Internal Medicine [address] [place] [address] [place] [address] Raheel Becker MD [address] [place] [address] documented as of this encounter Visit Diagnoses Not on filedocumented in this encounter Care Teams Gravity Prospecting Observer Helper Relationship Specialty Start Date End Date Shay Johnson MD PCP - General Internal Medicine 01/04/19 09/28/22 Sahy Johnson MD [address] [place] [address] PCP - Attributed-[facility] 11/03/18 Pcp, [facility] PCP - General 09/29/22 10/24/22 Raheel Becker MD [address] [place] [address] PCP - General Internal Medicine 10/25/22 Raheel Becker MD [address] [place] [address] PCP - Attributed-[facility] 12/03/22 Raheel Becker MD [address] [facility] [address] [place] [address] PCP - Attributed-[facility] BEL [facility] P4P 09/03/23 Francisco Javier Byrne Care Coordination Specialist Care Management 09/10/23 09/10/23 documented as of this encounter
[2024-09-04] MEDS: ACETAMINOPHEN 500 MG TABLET 1000 MG PO (06:30)
[2024-09-04] MEDS: LACTATED RINGERS 1,000 ML 30 ML IV CONT ×2 (06:35→11:36)
[2024-09-04] MEDS: TRANEXAMIC ACID 1,000MG/ISO100 1,000 MG/100 ML BAG 200 MG IVPB (06:35)
[2024-09-04] MEDS: VANCOMYCIN 1,000 MG/NS 250 ML 1,000 MG/250 ML BAG 250 MG IVPB ×2 (06:35→17:40)
--- NOTE | 2024-09-04 07:14 | WPDHPUPDATE1 ---
History and Physical Update Update Date/Time: 09/04/24 07:14 History and Physical has been reviewed, including an updated exam of the patient. There are NO changes in the patient's condition. Risks, benefits, and alternatives have been discussed and questions answered. Patient agrees to proceed with procedure.
--- NOTE | 2024-09-04 07:25 | P.PNAN_ITS ---
Anes - Initial Pre Proc Eval Procedure: Operation Date: 09/04/24 07:30 Proposed Procedures p Left Total Hip Arthroplasty, Direct Anterior Approach - Sanford Mariano MD Date/Time: 09/04/24 07:25 Surgeon: Sanford Mariano MD Pre Op Diagnosis: left hip oa Patient Data Age: 74 Gender: F Height: 1.68 m Weight: 66.1 kg Last Vital Signs Temp 97.1 F L 09/04/24 06:19 Pulse 86 09/04/24 06:19 Resp 18 09/04/24 06:19 BP 117/94 H 09/04/24 06:19 Pulse Ox 96 09/04/24 06:19 O2 Del Method Room Air 09/04/24 06:19 Allergies Allergy/AdvReac Type Severity Reaction Status Date / Time No Known Allergies Allergy Verified 09/04/24 06:20 Home Medications ?Medication ?Instructions ?Recorded ?Confirmed ?Type bupropion HCl 300 mg 24 hr tablet, 300 mg PO QAM 05/19/24 09/04/24 History extended release cholecalciferol (vitamin D3) 25 25 mcg PO DAILY 05/19/24 09/04/24 History mcg (1,000 unit) capsule fluticasone propionate 50 2 spray intranasal DAILY 05/19/24 09/04/24 History mcg/actuation nasal spray,suspension hydrochlorothiazide 25 mg tablet 25 mg PO DAILY 05/19/24 09/04/24 History meloxicam 15 mg tablet 15 mg PO DAILY 05/19/24 09/04/24 History multivitamin (Daily Multi-Vitamin 1 tablet PO DAILY 05/19/24 09/04/24 History tablet) oxybutynin chloride 5 mg tablet 5 mg PO DAILY 05/19/24 09/04/24 History rosuvastatin 10 mg tablet 10 mg PO DAILY 05/19/24 09/04/24 History cyanocobalamin (vitamin B-12) 3,000 mcg PO DAILY 07/15/24 09/04/24 History 3,000 mcg capsule hydrocodone 5 mg-acetaminophen 325 1 tablet PO Q12H PRN pain 07/15/24 08/25/24 History mg tablet hydrocodone 5 mg-acetaminophen 325 1 tablet PO Q4H PRN pain #30 tabs 08/15/24 08/25/24 Rx mg tablet Patient hx anesthesia problems: none Family hx anesthesia problems: none Results Review: All pre-operative results and documents have been reviewed as part of the pre- operative evaluation. [facility] Surgical History Surgical History (Updated 05/19/24 @ 13:29 by Alexandria Hall CMA) History of spinal surgery spinal fusion twice Disc's removed Social History Social History (Updated 05/19/24 @ 13:28 by Alexandria Hall CMA) Smoking packs per day: 0.2 Smoking cigarettes per day: 4.0 Years smoked: 7 Smoking pack-years: 1.40 Smoking status: Former smoker Tobacco type: cigarettes Smoking end date: 09/03/79 Alcohol intake: current Substance use: never Do You Feel Safe in your Home?: Yes Lack of Transportation: No Lack of Food: Never True Current Housing: I Have Housing Concerned About Future Housing: No Difficulty Paying Gas/Electric Bills: No Difficulty Paying for Meds: No Currently Unemployed: No Education: Associate Degree Difficulty w/ Childcare or Family Care: No Living arrangements: alone Spiritual care concerns: No Anes - Eval Final PreProcedure Day of Procedure 09/04/24 07:25 Patient weight: normal Heart: regular rate and rhythm Lungs: clear to auscultation Airway: Mallampati scale class II Neurological: alert and oriented Last oral intake: >/= 8 hours ASA classification: III Emergent: no Anesthetic plan: proceed Anesthesia type and monitoring: general ETT and standard monitoring Results Review: All pre-operative results and documents have been reviewed as part of the pre- operative evaluation. Informed Consent: The patient's anesthetic plan and its attendant risks and benefits were discussed with the patient/family/POA. Questions were solicited and answers provided to the satisfaction of the patient/family/POA.
[2024-09-04] MEDS: ceFAZolin 2 GM/D5W 50 ML 2 GM/50 ML BAG IVPB ×2 (07:33→21:05)
[2024-09-04] MEDS: SODIUM CHLORIDE 0.9% IV 37.7 ML, MORPHINE SULFATE INJ (*CRX) 2 MG, ROPivacaine HCL 1% 2... INFILTRATE (08:26)
[2024-09-04] MEDS: TRANEXAMIC ACID 1,000 MG/10 ML AMPUL 1000 MG IV PUSH (11:06)
[2024-09-04] MEDS: KETOROLAC 15 MG/ML VIAL (*BKC) 7.5 MG IV PUSH ×2 (11:10→17:38)
--- NOTE | 2024-09-04 11:34 | W.PM.PROC2 ---
Procedure Note - Detailed Date of Procedure 09/04/24 Pre-op Diagnosis left hip oa Post-op Diagnosis Same Procedure Performed Left total hip arthroplasty direct anterior approach Surgeon Sanford Mariano MD [employer] Anesthesia General Description of Procedure Patient was brought to the operating room and general anesthesia was administered. She received 2 g of Ancef preoperatively 1 g of TXA weight based vancomycin. The feet were padded boots applied SCDs applied and running during the procedure. [facility] and the left hip prepped and draped usual fashion. A 10 cm longitudinal incision was made starting 3 cm lateral to the ASIS extending distally. Dissection was carried down exposing the fascia over the tensor fascia sherrell which was longitudinally incised. This was elevated off the anterior 50% of the tensor fascia sherrell muscle and interval between tensor fascia sherrell and rectus femoris developed and crossing branches of ascending lateral femoral circumflex vessels were ligated with suture divided. A retractor was placed anteromedial to the joint capsule hip abducted and internally rotated and the gluteus minimus elevated off the lateral capsule. Inverted T capsulotomy was performed. Femoral neck osteotomy made according to preoperative templating. The femoral head was difficult to remove from the acetabulum. Superolateral osteophytes were trimmed and osteophytes rimming the femoral head were trimmed down with rongeur to make the femoral head smaller at the periphery which allowed the extraction without difficulty. The femoral head measured 47.5 mm in diameter. The acetabulum was exposed. Large anterior superior osteophyte removed. The acetabulum was sclerotic and ballooned out a bit posteriorly. The leg was externally rotated in extended with the table hook and we completed release of the lateral capsule on the greater trochanter and interval between conjoined tendon and piriformis was incised which allowed the piriformis to flip posteriorly. With the leg back in the horizontal position traction external rotation acetabulum was exposed. We medialized with a 42 mm Reamer to the medial wall and reamed up to a size 50 Reamer which gave circumferential reaming. The 50 trial fit nicely. The 50 mm emphasis cup was chosen and impacted that 40? of abduction 20? of anteversion matching the anatomy. Excellent Press-Fit was achieved. A single screw placed in the ilium. Osteophytes were then removed around the acetabulum circumferentially as they were prominent. The 40 mm inner diameter dual mobility liner trial was placed. Leg was externally rotated extended with the table hook in place and we broached to a size 6 which had good torsional mobility. We trialed and we were about 2 mm higher than our preoperative template and the hip was quite tight with the 1.5 head trial assembled to the 40 mm dual mobility trial. Intraoperative x-ray was obtained which showed that we had lengthened the leg about 5 mm above its preoperative length. I estimated based on the lesser trochanters on preoperative templating were about 7 mm short on the left assuming perfectly symmetric lesser trochanter position. Based on the excessive tightness I elected to recess the 6 broach another 2.5 mm in on read trialing we now had appropriate Shuck with excellent stability. We saw that there would be no impingement on the edge of the dual mobility liner trial with the buildup placed superiorly at the 12 30 to 1 o'clock position. Therefore, after completion of calcar planing, we placed the 40 mm inner diameter dual mobility acetabular liner with the apex at the 12 30 to 1 o'clock position and this seated fully without difficulty . We then placed the size 6 Actis standard neck stem which fully seated without difficulty. It is noteworthy that her femoral neck cortical thickness was surprisingly thick and dense. No cracks in the calcar. We trialed with the 1.5 mm head construct which gave ample shock and was stable. We trialed with the 5 mm head construct which was excessively tight. The 1.5 x 28 mm ceramic head was assembled to the 40 mm dual mobility had and it is spun freely within had after full insertion and after thorough irrigation with antibiotic solution this was impacted on the clean and dried trunnion hip reduced stability reconfirmed. Final fluoroscopic image was obtained which showed no radiographic complication. The superior limb of the capsulotomy was approximated with 2. Vicryl. Local anesthetic cocktail was injected in the periarticular soft tissues. The fascia was closed with running 1. Vicryl. Drain was placed deep in the subcu skin closed with 2 subcutaneous Vicryl and glue. EBL was 350 cc. She received 100 back as Cell Saver. There were no complications. Additional 2 g of Ancef 1 g TXA given time closure. She was transferred postop recovery stable condition. Her bone quality was very good we will lower to be weight-bearing as tolerated. [facility] Billing Surgery - Charge Forward: Surgery Billing (Left total hip arthroplasty direct anterior approach)
--- NOTE | 2024-09-04 11:45 | PM.OP ---
Procedure Note - Brief Procedure Note - Brief Date of procedure: 09/04/24 left hip oa Procedure performed: Left anterior total hip arthroplasty Surgeon: TRUNG Driver Findings: 74-year-old female underwent left anterior total hip arthroplasty on 09/04. I was involved in the procedure including positioning the patient on the OR table and 1st assisting through the time surgery. Total time spent was 3-1/2 hours
[2024-09-04] MEDS: fentaNYL CITRATE INJ (*CRX) 100 MCG/2 ML VIAL 25 MCG IV PUSH ×7 (11:50→12:36)
--- NOTE | 2024-09-04 13:00 | ADMGEN ---
This patient, Diana Keen, was admitted to [facility] Surg Room 329-01. Patient/family oriented to hospital policies and general routines including ID bracelet, bed and alarms, visiting hours, pain management, procedures, bathroom and other care routines, personal items, smoking policy, room service/diet, and visiting hours. Information on how to activate the Rapid Response Team has been discussed. Patient/Family are encouraged to report perceived risks to care and to ask questions if they do not understand what they are told or what they should do.
--- NOTE | 2024-09-04 13:35 | P.CONIM_ITS ---
Assessment and Plan Assessment and plan (1) Primary osteoarthritis of left hip: Code(s): M16.12 - Unilateral primary osteoarthritis, left hip Status: Acute Assessment and Plan: Status post total left hip by Orthopedics on 09/04/2024 Pain management by Orthopedics [facility] for VTE Postop antibiotics (2) Depression: Code(s): F32.A - Depression, unspecified Status: Acute Assessment and Plan: Continue home Wellbutrin (3) Hypertension: Code(s): I10 - Essential (primary) hypertension Status: Acute Assessment and Plan: Continue home hydrochlorothiazide (4) Hyperlipidemia: Code(s): E78.5 - Hyperlipidemia, unspecified Status: Acute Assessment and Plan: Continue home Crestor (5) Bladder spasm: Code(s): N32.89 - Other specified disorders of bladder Status: Acute Assessment and Plan: Continue home Ditropan HPI Date of Consult Consult date: 09/04/24 Requesting Physician: Sanford Mariano MD Primary Care Provider: Raheel Becker Consult Narrative Reason for consult: Medical management Narrative: Diana Keen is a 74 year old female with history of left hip arthritis presents the hospital for a planned left total hip. Patient seen after OR. Patient's history pain was well controlled. Her only complaint is that she was not able to rest. She states that she is extremely tired. Patient is afraid she is going to be exhausted tomorrow approved Preop lab work is unremarkable. Vital signs stable. Review of Systems Review of Systems: 12 systems were reviewed and are negativ e except for as per HPI. [facility] Past Medical History Medical History (Updated 09/04/24 @ 14:16 by Stacey Nettles APRN) Bladder spasm Hyperlipidemia Hypertension Depression Surgical History Surgical History (Updated 05/19/24 @ 13:29 by Alexandria Hall CMA) History of spinal surgery spinal fusion twice Disc's removed Social History Social History (Updated 05/19/24 @ 13:28 by Alexandria Hall CMA) Smoking packs per day: 0.2 Smoking cigarettes per day: 4.0 Years smoked: 7 Smoking pack-years: 1.40 Smoking status: Former smoker Tobacco type: cigarettes Smoking end date: 09/03/79 Alcohol intake: current Substance use: never Do You Feel Safe in your Home?: Yes Lack of Transportation: No Lack of Food: Never True Current Housing: I Have Housing Concerned About Future Housing: No Difficulty Paying Gas/Electric Bills: No Difficulty Paying for Meds: No Currently Unemployed: No Education: Associate Degree Difficulty w/ Childcare or Family Care: No Living arrangements: alone Spiritual care concerns: No Meds Home Medications and Allergies Home Medications ?Medication ?Instructions ?Recorded ?Confirmed ?Type bupropion HCl 300 mg 24 hr tablet, 300 mg PO QAM 05/19/24 09/04/24 History extended release cholecalciferol (vitamin D3) 25 25 mcg PO DAILY 05/19/24 09/04/24 History mcg (1,000 unit) capsule fluticasone propionate 50 2 spray intranasal DAILY 05/19/24 09/04/24 History mcg/actuation nasal spray,suspension hydrochlorothiazide 25 mg tablet 25 mg PO DAILY 05/19/24 09/04/24 History meloxicam 15 mg tablet 15 mg PO DAILY 05/19/24 09/04/24 History multivitamin (Daily Multi-Vitamin 1 tablet PO DAILY 05/19/24 09/04/24 History tablet) oxybutynin chloride 5 mg tablet 5 mg PO DAILY 05/19/24 09/04/24 History rosuvastatin 10 mg tablet 10 mg PO DAILY 05/19/24 09/04/24 History cyanocobalamin (vitamin B-12) 3,000 mcg PO DAILY 07/15/24 09/04/24 History 3,000 mcg capsule hydrocodone 5 mg-acetaminophen 325 1 tablet PO Q12H PRN pain 07/15/24 08/25/24 History mg tablet hydrocodone 5 mg-acetaminophen 325 1 tablet PO Q4H PRN pain #30 tabs 08/15/24 08/25/24 Rx mg tablet Allergies Allergy/AdvReac Type Severity Reaction Status Date / Time No Known Allergies Allergy Verified 09/04/24 06:20 Vital Signs Vital Signs - 24 hr 09/04/24 06:19 09/04/24 11:36 09/04/24 11:50 Temperature 97.1 F L 98.2 F Pulse Rate 86 93 93 Respiratory Rate 18 12 14 Blood Pressure 117/94 H 134/65 144/68 H Pulse Oximetry 96 100 100 Oxygen Delivery Room Air Simple Face Mask Simple Face Mask Oxygen Flow Rate 6 6 09/04/24 12:05 09/04/24 12:15 09/04/24 12:20 Temperature Pulse Rate 76 68 Respiratory Rate 12 12 Blood Pressure 143/60 H 130/69 Pulse Oximetry 100 95 Oxygen Delivery Simple Face Mask Room Air Room Air Oxygen Flow Rate 6 09/04/24 12:35 09/04/24 12:48 Temperature 97.8 F Pulse Rate 88 74 Respiratory Rate 12 12 Blood Pressure 127/69 141/85 H Pulse Oximetry 98 95 Oxygen Delivery Room Air Room Air Oxygen Flow Rate Exam Narrative: General: well appearing, appears stated age. HEENT: normocephalic, atraumatic. Mucous membranes moist. EOMI, PERRLA, bilateral sclera anicteric, no conjunctival injection. Neck supple without JVD, lymphadenopathy, or bruit. Respiratory: clear to ascultation bilaterally. No rales/rhonic/wheezes. Cardiovascular: Regular rate and rhythm, normal S1-S2 upon ascultation. No murmurs, rubs, or clicks. PMI is nondisplaced, capillary refill less than 3 second. Abdomen: Soft, round, no pulsatile masses, nondistended and nontender. No rebound, no guarding. No CVA tenderness, no hepatosplenomegaly. Bowel sounds present to all four quadrants. No high pitch or tinkling sounds, resonant to percussion. Extremities: No cyanosis, clubbing, or edema present. Pulses are palpable 2/2. Left lower extremity dressing clean dry intact Neuro: Alert and orientated x 4. PERRLA. Cranial nerves 2-12 intact without focal deficit. Skin: Warm, dry, and intact, without rash, erythema, or lesion. Psych: pleasant, cooperative, normal speech, normal affect, no hallucinations, no dysarthia Quality VTE Prophylaxis VTE prophylaxis: mechanical ordered and pharmacologic ordered Hospitalist [facility] Advance Care Plan I have confirmed that the patient's Advanced Care Plan is present, code status is documented, or surrogate decision maker is listed in patient medical record.: Yes Medication Reconciliation I have utilized all available resources to obtain, update and review the patients current medications (includes all prescriptions, OTC, herbals, cannabis, and nutritional supplements).: Yes
[2024-09-04] MEDS: oxyCODONE HCL (*CRX) 5 MG TAB IR PO ×3 (13:52→21:05)
--- NOTE | 2024-09-04 14:02 | PCPTNOTE ---
Attempted PT evaluation, Pt refused due to having pain in her R eye and being crabby from not sleeping last night. Pt requested therapist try at later time. Nurse present for refusal.
[2024-09-04] MEDS: PROPARACAINE HCL 0.5% 15 ML OPHTH SOLN 1 DROP EACH EYE (15:12)
[2024-09-04] MEDS: ACETAMINOPHEN 325 MG TABLET 650 MG PO ×3 (15:12→21:05)
--- NOTE | 2024-09-04 15:59 | PCPTNOTE ---
Attempted PT evaluation for 2nd time, pt refused stating I know I should, but pt reporting she is too tired right now. Nurse present for refusal. Pt educated on getting up this evening with nurisng staff.
[2024-09-04] MEDS: SENNA/DOCUSATE SODIUM TABLET 2 TAB PO (17:40)
[2024-09-04] MEDS: DICLOFENAC SODIUM 0.1% OPHTH SOLN 2.5 ML BOTTLE 1 DROP EACH EYE (21:04)
[2024-09-04] MEDS: FAMOTIDINE 20 MG TABLET PO (21:05)
[2024-09-04] MEDS: MELATONIN 5 MG TABLET PO (21:05)
[2024-09-05 00:22] VITALS: BP 96/50; PULSE 48; RESP 16; TEMP 36.8; O2SAT 95
[2024-09-05] MEDS: KETOROLAC 15 MG/ML VIAL (*BKC) 7.5 MG IV PUSH (00:37)
[2024-09-05] MEDS: oxyCODONE HCL (*CRX) 5 MG TAB IR PO ×4 (00:38→12:06)
[2024-09-05] MEDS: ACETAMINOPHEN 325 MG TABLET 650 MG PO ×4 (00:38→12:06)
[2024-09-05] MEDS: ceFAZolin 2 GM/D5W 50 ML 2 GM/50 ML BAG IVPB ×2 (04:44→10:18)
[2024-09-05] MEDS: DICLOFENAC SODIUM 0.1% OPHTH SOLN 2.5 ML BOTTLE 1 DROP EACH EYE (05:30)
[2024-09-05] MEDS: VANCOMYCIN 1,000 MG/NS 250 ML 1,000 MG/250 ML BAG 167 MG IVPB (05:30)
[2024-09-05 06:00] VITALS: BP 104/61; PULSE 67; RESP 14; TEMP 36.3; O2SAT 97
[2024-09-05 06:10] VITALS: O2SAT 97
[2024-09-05 06:13] LABS: Hematocrit 29.4 % (37.0-47.0); Hemoglobin 9.5 g/dL (12.0-15.0); Immature Granulocyte Percent A 0.4 % (0-0.5); Lymphocytes Absolute Auto 2.40 K/mm3 (0.9-3.2); Mean Corpuscular HGB Conc 32.3 g/dl (32-36); Mean Corpuscular Hemoglobin 30.1 pg (26-34); Mean Corpuscular Volume 93.0 fl (80-100); Nucleated Red Blood Cells Absolute Auto 0.000 K/mm3 (0.0-0.012); Nucleated Red Blood Cells Perc 0.0 % (0.0-0.2); Platelet Count Result 232 k/mm3 (150-375); Red Blood Count 3.16 M/mm3 (4.2-5.4); White Blood Count 11.2 K/mm3 (4.5-10.0)
[2024-09-05 06:25] LABS: Anion Gap 5 mmol/L (4-12); Blood Urea Nitrogen 18 mg/dL (7-17); Calcium 8.4 mg/dL (8.4-10.2); Carbon Dioxide 27 mmol/L (22-30); Chloride 105 mmol/L (98-107); Estimated CRCL calculation 55 ml/min; Estimated Glomerular Filt Rate > 60; Glucose 112 mg/dL (65-110); Potassium 3.6 mmol/L (3.4-5.0); Sodium 137 mmol/L (137-145)
--- NOTE | 2024-09-05 07:33 | P.PNIM_ITS ---
Progress Note: A&P Assessment and Plan (1) Primary osteoarthritis of left hip: Code(s): M16.12 - Unilateral primary osteoarthritis, left hip Status: Acute Assessment and Plan: Status post total left hip by Orthopedics on 09/04/2024 Pain management by Orthoped[facility] for VTE Postop antibiotics (2) Depression: Code(s): F32.A - Depression, unspecified Status: Acute Assessment and Plan: Continue home Wellbutrin (3) Hypertension: Code(s): I10 - Essential (primary) hypertension Status: Acute Assessment and Plan: Continue home hydrochlorothiazide (4) Hyperlipidemia: Code(s): E78.5 - Hyperlipidemia, unspecified Status: Acute Assessment and Plan: Continue home Crestor (5) Bladder spasm: Code(s): N32.89 - Other specified disorders of bladder Status: Acute Assessment and Plan: Continue home Ditropan (6) Status post left hip replacement: Code(s): Z96.642 - Presence of left artificial hip joint Status: Acute Subjective Date/time seen: 09/05/24 07:33 Interval history: Diana Keen is a 74 year old female with history of left hip arthritis presents the hospital for a planned left total hip. Patient seen after OR. Patient's history pain was well controlled. Her only complaint is that she was not able to rest. She states that she is extremely tired. 09/05/2024 Slightly worse WBC, 11.2, up from 5.9. CMP unremarkable. Pt otherwise hemodynamically stable. Pending discharge per Ortho. No other workup required at this time, will continue to follow along until patient is discharged. Review of Systems Review of Systems: 12 systems were reviewed and are negativ e except for as per HPI. Exam Narrative: General: well appearing, appears stated age. HEENT: normocephalic, atraumatic. Mucous membranes moist. EOMI, PERRLA, bilateral sclera anicteric, no conjunctival injection. Neck supple without JVD, lymphadenopathy, or bruit. Respiratory: clear to ascultation bilaterally. No rales/rhonic/wheezes. Cardiovascular: Regular rate and rhythm, normal S1-S2 upon ascultation. No murmurs, rubs, or clicks. PMI is nondisplaced, capillary refill less than 3 second. Abdomen: Soft, round, no pulsatile masses, nondistended and nontender. No rebound, no guarding. No CVA tenderness, no hepatosplenomegaly. Bowel sounds present to all four quadrants. No high pitch or tinkling sounds, resonant to percussion. Extremities: No cyanosis, clubbing, or edema present. Pulses are palpable 2/2. Left lower extremity dressing clean dry intact Neuro: Alert and orientated x 4. PERRLA. Cranial nerves 2-12 intact without focal deficit. Skin: Warm, dry, and intact, without rash, erythema, or lesion. Psych: pleasant, cooperative, normal speech, normal affect, no hallucinations, no dysarthia Objective Data Vital Signs Vital Signs: Vital Signs - 24 hr 09/04/24 11:36 09/04/24 11:50 09/04/24 12:05 Temperature 98.2 F Pulse Rate 93 93 76 Respiratory Rate 12 14 12 Blood Pressure 134/65 144/68 H 143/60 H Pulse Oximetry 100 100 100 Oxygen Delivery Simple Face Mask Simple Face Mask Simple Face Mask Oxygen Flow Rate 6 6 6 09/04/24 12:15 09/04/24 12:20 09/04/24 12:35 Temperature 97.8 F Pulse Rate 68 88 Respiratory Rate 12 12 Blood Pressure 130/69 127/69 Pulse Oximetry 95 98 Oxygen Delivery Room Air Room Air Room Air Oxygen Flow Rate 09/04/24 12:48 09/04/24 13:00 09/04/24 13:00 Temperature 97.8 F Pulse Rate 74 87 Respiratory Rate 12 18 Blood Pressure 141/85 H 136/80 Pulse Oximetry 95 97 Oxygen Delivery Room Air Room Air Oxygen Flow Rate 09/04/24 13:15 09/04/24 13:45 09/04/24 15:00 Temperature 97.1 F L 97.3 F L 97.2 F L Pulse Rate 84 86 85 Respiratory Rate 18 18 18 Blood Pressure 136/81 123/70 128/78 Pulse Oximetry 100 97 96 Oxygen Delivery Oxygen Flow Rate 09/04/24 20:00 09/04/24 22:19 09/05/24 00:22 Temperature 97.8 F 98.2 F Pulse Rate 85 85 48 L Respiratory Rate 18 14 16 Blood Pressure 102/62 96/50 L Pulse Oximetry 96 97 95 Oxygen Delivery Room Air Oxygen Flow Rate 09/05/24 06:00 09/05/24 06:10 Temperature 97.3 F L Pulse Rate 67 Respiratory Rate 14 Blood Pressure 104/61 Pulse Oximetry 97 97 Oxygen Delivery Room Air Oxygen Flow Rate Intake/Output Intake/Output: Intake & Output 09/02/24 09/03/24 09/04/24 09/05/24 23:59 23:59 23:59 23:59 Intake Total 1030 400 Output Total 160 Balance 1030 240 Meds/Results Medications: Active Medications Generic Name Dose Route Start Last Admin Trade Name Freq PRN Reason Stop Dose Admin Acetaminophen 650 mg 09/04/24 14:00 09/05/24 04:43 Acetaminophen 325 Mg Tablet PO 650 mg Q4HR [facility] Administration Apixaban 2.5 mg 09/05/24 09:00 Apixaban 2.5 Mg Tablet PO 09/22/24 09:01 Q12HR ROS[facility] Artificial Tears 1 drop 09/04/24 14:35 Artificial Tears Ophth Soln 15 Ml Bottle EACH EYE Q2H PRN Dry Eye(s) Bupropion HCl 300 mg 09/05/24 09:00 Bupropion Hcl Xl (24 Hr) 150 Mg Tabcr PO QAM [facility] Cefdinir 300 mg 09/05/24 12:00 Cefdinir 300 Mg Capsule PO Q12HR [facility] Celecoxib 100 mg 09/05/24 09:00 Celecoxib 100 Mg Capsule PO DAILY [facility] Cyanocobalamin 3,000 mcg 09/05/24 09:00 Cyanocobalamin 1,000 Mcg Tablet PO DAILY [facility] Diclofenac Sodium 1 drop 09/04/24 22:00 09/05/24 05:30 Diclofenac Sodium 0.1% Ophth Soln 2.5 Ml Bottle EACH EYE 09/08/24 21:59 1 drop Q8HR [facility] Administration Famotidine 20 mg 09/04/24 21:00 09/04/24 21:05 Famotidine 20 Mg Tablet PO 20 mg Q12HR [facility] Administration Fluticasone Propionate 2 spray 09/05/24 09:00 Fluticasone Propionate 0.05% Na Spr 16 Gm Btl (*Bkc) NASAL DAILY [facility] Hydrochlorothiazide 25 mg 09/05/24 09:00 Hydrochlorothiazide 25 Mg Tablet PO DAILY [facility] Cefazolin Sodium 2 gm in 50 mls @ 100 mls/hr 09/04/24 18:00 09/05/24 05:14 Ancef 2 Gm/D5w 50 Ml IVPB 09/05/24 10:29 Infused Q8H [facility] Infusion Melatonin 5 mg 09/04/24 21:00 09/04/24 21:05 Melatonin 5 Mg Tablet PO 5 mg HS [facility] Administration Morphine Sulfate 2 mg 09/04/24 12:49 Morphine Sulfate (*Crx) 2 Mg/Ml Inj IV PUSH Q2H PRN Breakthrough Pain Rated 4-6 or NPO Naloxone HCl 0.1 mg 09/04/24 12:49 Naloxone Hcl 0.4 Mg/Ml Vial IV PUSH Q2M PRN Opiate Reversal Ondansetron HCl 4 mg 09/04/24 12:49 Ondansetron Inj 4 Mg/2 Ml Vial IV PUSH Q4H PRN Nausea And Vomiting Oxybutynin Chloride 5 mg 09/05/24 09:00 Oxybutynin Chloride 5 Mg Tablet PO DAILY [facility] Oxycodone HCl 5 mg 09/04/24 12:49 09/05/24 04:43 Oxycodone Hcl (*Crx) 5 Mg Tab Ir PO 5 mg Q4H [facility] Administration Oxycodone HCl 5 mg 09/04/24 12:49 Oxycodone Hcl (*Crx) 5 Mg Tab Ir PO Q4H PRN Pain Rated 7-10 Polyethylene Glycol 17 gm 09/05/24 09:00 Polyethylene Glycol 3350 17 Gm Powd.Pack PO QAM [facility] Rosuvastatin Calcium 10 mg 09/05/24 09:00 Rosuvastatin 10 Mg Tablet PO DAILY [facility] Senna/Docusate Sodium 2 tab 09/04/24 17:00 09/04/24 17:40 Senna/Docusate Sodium Tablet PO 2 tab BID [facility] Administration Vitamin D 25 mcg 09/05/24 09:00 Cholecalciferol (Vitamin D3) 25 Mcg (1,000 Units) Tablet PO DAILY [facility] Radiology Results: ITS Impressions Intraoperative X-Ray 09/04/24 11:59 IMPRESSION: 1. Placement of a left total hip arthroplasty in near-anatomic alignment. See procedure note for further detail. Hip/Pelvis X-Ray 09/04/24 12:02 IMPRESSION: 1. No replaced noncemented left total hip arthroplasty which is near-anatomic alignment, negative for postoperative purposes. Labs Labs: Laboratory Results - last 24 hr 09/05/24 05:59 WBC 11.2 H RBC 3.16 L Hgb 9.5 L Hct 29.4 L MCV 93.0 MCH 30.1 MCHC 32.3 RDW 13.8 Plt Count 232 MPV 10.2 Immature Gran % (Auto) 0.4 Neut % (Auto) 60.9 Lymph % (Auto) 21.4 [place] % (Auto) 16.5 H Eos % (Auto) 0.4 Baso % (Auto) 0.4 Lymph # (Auto) 2.40 [place] # (Auto) 1.9 H Eos # (Auto) 0.0 Baso # (Auto) 0.0 Abs Immat Gran (auto) 0.04 H Absolute Neuts (auto) 6.9 H Absolute Nucleated RBC 0.000 Nucleated RBC % 0.0 Sodium 137 Potassium 3.6 Chloride 105 Carbon Dioxide 27 Anion Gap 5 BUN 18 H Creatinine 0.72 Estim Creat Clear Calc 55 Estimated GFR > 60 Glucose 112 H Calcium 8.4 Quality VTE Prophylaxis VTE prophylaxis: mechanical ordered and pharmacologic ordered
[2024-09-05] MEDS: FAMOTIDINE 20 MG TABLET PO (08:19)
[2024-09-05] MEDS: SENNA/DOCUSATE SODIUM TABLET 2 TAB PO (08:19)
[2024-09-05] MEDS: buPROPion HCL XL (24 HR) 150 MG TABCR 300 MG PO (08:19)
[2024-09-05] MEDS: CHOLECALCIFEROL (VITAMIN D3) 25 MCG (1,000 UNITS) TABLET PO (08:19)
[2024-09-05] MEDS: ROSUVASTATIN 10 MG TABLET PO (08:19)
[2024-09-05] MEDS: FLUTICASONE PROPIONATE 0.05% NA SPR 16 GM BTL (*BKC) 2 SPRAY NASAL (08:20)
[2024-09-05] MEDS: CYANOCOBALAMIN 1,000 MCG TABLET 3000 MCG PO (08:20)
[2024-09-05] MEDS: CELECOXIB 100 MG CAPSULE PO (08:20)
[2024-09-05] MEDS: ARTIFICIAL TEARS OPHTH SOLN 15 ML BOTTLE 1 DROP EACH EYE (08:21)
[2024-09-05] MEDS: APIXABAN 2.5 MG TABLET PO (08:22)
--- NOTE | 2024-09-05 09:06 | PM.PNORT ---
Progress Note: A&P Assessment and Plan (1) Status post left hip replacement: Code(s): Z96.642 - Presence of left artificial hip joint Status: Acute Assessment and Plan: Patient is postop day 1. For left total hip arthroplasty to address advanced osteoarthritis left hip. She has been doing well. She was up walking to the bathroom several times yesterday and last night and is working with physical therapy this morning. She has soreness about the hip but her pain is well controlled she tolerates full weight-bearing. There is no swelling in the leg. He has intact sensation motor function of the foot and ankle. Her hemoglobin is 9.5. Creatinine 0.72. Blood pressure 104/72. Patient was standing and walking in front of me and denies any lightheadedness. In fact she was able to go up and down stairs today which she normally does not do and has not done since her lower back surgery. I discussed her postoperative anemia with her which is an acute blood loss anemia and reminded her to drink plenty of fluids so she does not get dehydrated which could cause lightheadedness. If she has problems with this she will call us. Her chief complaint is scratchy feeling in her right eye. She gets relief from this when she uses the artificial tears of an ordered for her. We will plan to discharge her home later today. She feels comfortable going home today and will have her to 15-year-old teenage granddaughters helping her on a full-time basis in shifts. They live next door to her. Subjective Subjective Date/Time Seen: 09/05/24 09:06 Objective Data Vital Signs Vital Signs: Vital Signs - 24 hr 09/04/24 11:36 09/04/24 11:50 09/04/24 12:05 Temperature 36.8 C Pulse Rate 93 93 76 Respiratory Rate 12 14 12 Blood Pressure 134/65 144/68 H 143/60 H Pulse Oximetry 100 100 100 Oxygen Delivery Simple Face Mask Simple Face Mask Simple Face Mask Oxygen Flow Rate 6 6 6 09/04/24 12:15 09/04/24 12:20 09/04/24 12:35 Temperature 36.6 C Pulse Rate 68 88 Respiratory Rate 12 12 Blood Pressure 130/69 127/69 Pulse Oximetry 95 98 Oxygen Delivery Room Air Room Air Room Air Oxygen Flow Rate 09/04/24 12:48 09/04/24 13:00 09/04/24 13:00 Temperature 36.6 C Pulse Rate 74 87 Respiratory Rate 12 18 Blood Pressure 141/85 H 136/80 Pulse Oximetry 95 97 Oxygen Delivery Room Air Room Air Oxygen Flow Rate 09/04/24 13:15 09/04/24 13:45 09/04/24 15:00 Temperature 36.2 C L 36.3 C L 36.2 C L Pulse Rate 84 86 85 Respiratory Rate 18 18 18 Blood Pressure 136/81 123/70 128/78 Pulse Oximetry 100 97 96 Oxygen Delivery Oxygen Flow Rate 09/04/24 20:00 09/04/24 22:19 09/05/24 00:22 Temperature 36.6 C 36.8 C Pulse Rate 85 85 48 L Respiratory Rate 18 14 16 Blood Pressure 102/62 96/50 L Pulse Oximetry 96 97 95 Oxygen Delivery Room Air Oxygen Flow Rate 09/05/24 06:00 09/05/24 06:10 Temperature 36.3 C L Pulse Rate 67 Respiratory Rate 14 Blood Pressure 104/61 Pulse Oximetry 97 97 Oxygen Delivery Room Air Oxygen Flow Rate Intake/Output Intake/Output: Intake & Output 09/02/24 09/03/24 09/04/24 09/05/24 23:59 23:59 23:59 23:59 Intake Total 1030 400 Output Total 160 Balance 1030 240 Meds/Results Medications: Active Medications Generic Name Dose Route Start Last Admin Trade Name Freq PRN Reason Stop Dose Admin Acetaminophen 650 mg 09/04/24 14:00 09/05/24 08:19 Acetaminophen 325 Mg Tablet PO 650 mg Q4HR [facility] Administration Apixaban 2.5 mg 09/05/24 09:00 09/05/24 08:22 Apixaban 2.5 Mg Tablet PO 09/22/24 09:01 2.5 mg Q12HR [facility] Administration Artificial Tears 1 drop 09/04/24 14:35 09/05/24 08:21 Artificial Tears Ophth Soln 15 Ml Bottle EACH EYE 1 drop Q2H PRN Administration Dry Eye(s) Bupropion HCl 300 mg 09/05/24 09:00 09/05/24 08:19 Bupropion Hcl Xl (24 Hr) 150 Mg Tabcr PO 300 mg QAM [facility] Administration Cefdinir 300 mg 09/05/24 12:00 Cefdinir 300 Mg Capsule PO Q12HR [facility] Celecoxib 100 mg 09/05/24 09:00 09/05/24 08:20 Celecoxib 100 Mg Capsule PO 100 mg DAILY [facility] Administration Cyanocobalamin 3,000 mcg 09/05/24 09:00 09/05/24 08:20 Cyanocobalamin 1,000 Mcg Tablet PO 3,000 mcg DAILY [facility] Administration Diclofenac Sodium 1 drop 09/04/24 22:00 09/05/24 05:30 Diclofenac Sodium 0.1% Ophth Soln 2.5 Ml Bottle EACH EYE 09/08/24 21:59 1 drop Q8HR [facility] Administration Famotidine 20 mg 09/04/24 21:00 09/05/24 08:19 Famotidine 20 Mg Tablet PO 20 mg Q12HR [facility] Administration Fluticasone Propionate 2 spray 09/05/24 09:00 09/05/24 08:20 Fluticasone Propionate 0.05% Na Spr 16 Gm Btl (*Bkc) NASAL 2 spray DAILY [facility] Administration Hydrochlorothiazide 25 mg 09/05/24 09:00 09/05/24 08:19 Hydrochlorothiazide 25 Mg Tablet PO 25 mg DAILY [facility] Administration Cefazolin Sodium 2 gm in 50 mls @ 100 mls/hr 09/04/24 18:00 09/05/24 05:14 Ancef 2 Gm/D5w 50 Ml IVPB 09/05/24 10:29 Infused Q8H [facility] Infusion Melatonin 5 mg 09/04/24 21:00 09/04/24 21:05 Melatonin 5 Mg Tablet PO 5 mg HS [facility] Administration Morphine Sulfate 2 mg 09/04/24 12:49 Morphine Sulfate (*Crx) 2 Mg/Ml Inj IV PUSH Q2H PRN Breakthrough Pain Rated 4-6 or NPO Naloxone HCl 0.1 mg 09/04/24 12:49 Naloxone Hcl 0.4 Mg/Ml Vial IV PUSH Q2M PRN Opiate Reversal Ondansetron HCl 4 mg 09/04/24 12:49 Ondansetron Inj 4 Mg/2 Ml Vial IV PUSH Q4H PRN Nausea And Vomiting Oxybutynin Chloride 5 mg 09/05/24 09:00 09/05/24 08:20 Oxybutynin Chloride 5 Mg Tablet PO 5 mg DAILY [facility] Administration Oxycodone HCl 5 mg 09/04/24 12:49 09/05/24 08:20 Oxycodone Hcl (*Crx) 5 Mg Tab Ir PO 5 mg Q4H [facility] Administration Oxycodone HCl 5 mg 09/04/24 12:49 Oxycodone Hcl (*Crx) 5 Mg Tab Ir PO Q4H PRN Pain Rated 7-10 Polyethylene Glycol 17 gm 09/05/24 09:00 09/05/24 08:18 Polyethylene Glycol 3350 17 Gm Powd.Pack PO 17 gm QAM [facility] Administration Rosuvastatin Calcium 10 mg 09/05/24 09:00 09/05/24 08:19 Rosuvastatin 10 Mg Tablet PO 10 mg DAILY [facility] Administration Senna/Docusate Sodium 2 tab 09/04/24 17:00 09/05/24 08:19 Senna/Docusate Sodium Tablet PO 2 tab BID [facility] Administration Vitamin D 25 mcg 09/05/24 09:00 09/05/24 08:19 Cholecalciferol (Vitamin D3) 25 Mcg (1,000 Units) Tablet PO 25 mcg DAILY [facility] Administration Radiology Results: ITS Impressions Intraoperative X-Ray 09/04/24 11:59 IMPRESSION: 1. Placement of a left total hip arthroplasty in near-anatomic alignment. See procedure note for further detail. Hip/Pelvis X-Ray 09/04/24 12:02 IMPRESSION: 1. No replaced noncemented left total hip arthroplasty which is near-anatomic alignment, negative for postoperative purposes. Labs Labs: Laboratory Results - last 24 hr 09/05/24 05:59 WBC 11.2 H RBC 3.16 L Hgb 9.5 L Hct 29.4 L MCV 93.0 MCH 30.1 MCHC 32.3 RDW 13.8 Plt Count 232 MPV 10.2 Immature Gran % (Auto) 0.4 Neut % (Auto) 60.9 Lymph % (Auto) 21.4 [place] % (Auto) 16.5 H Eos % (Auto) 0.4 Baso % (Auto) 0.4 Lymph # (Auto) 2.40 [place] # (Auto) 1.9 H Eos # (Auto) 0.0 Baso # (Auto) 0.0 Abs Immat Gran (auto) 0.04 H Absolute Neuts (auto) 6.9 H Absolute Nucleated RBC 0.000 Nucleated RBC % 0.0 Sodium 137 Potassium 3.6 Chloride 105 Carbon Dioxide 27 Anion Gap 5 BUN 18 H Creatinine 0.72 Estim Creat Clear Calc 55 Estimated GFR > 60 Glucose 112 H Calcium 8.4
[2024-09-05] MEDS: CEFDINIR 300 MG CAPSULE PO (10:20)
[2024-09-05 10:33] VITALS: BP 106/61; PULSE 75; RESP 18; TEMP 36.1; O2SAT 98
== END 2024-09-05 13:55 | disposition home or self-care (01) ==
LOC: ANHSURGERY 05:58 → ANH3MEDSUR 12:54
PROVIDERS: Physician Assistant Surgical; Visit Provider Orthopaedic Surgery
PROC: (CPT 27130; principal; 2024-09-04 07:30)
DX: M16.12 Unilateral primary osteoarthritis, left hip (principal); I10 Essential (primary) hypertension; E78.5 Hyperlipidemia, unspecified; F32.A Depression, unspecified; N32.89 Other specified disorders of bladder; Z87.891 Personal history of nicotine dependence
CPT/HCPCS: 27130; 36415; 73501; 80048; 85025; 97161; 97165; 97530; 97535; 99199; A9270; J0166; J0690; J1100; J1885; J2270; J2405; J2704; J2795; J3010; J3373; J7040; J7120

== ENCOUNTER 2024-09-12 09:37 | Outpatient (CLI) | payer MEDICARE, SELFPAY ==
--- NOTE | ~2024-09-12 | US_ITS ---
EXAMINATION: US venous doppler [facility] DATE: 09/12/2024 10:39 INDICATION: Localized edema TECHNIQUE: Grayscale ultrasound images without and with compression and Doppler ultrasound images of the left lower extremity veins were obtained. COMPARISON: None. FINDINGS: The visualized portions of left common femoral vein, profunda (deep) femoral vein, femoral vein, popl iteal vein, peroneal veins, posterior tibial veins, and greater saphenous vein outflow are patent. IMPRESSION: 1. No deep venous thrombosis. Reviewed, dictated and finalized at location A.
--- OUTSIDE RECORDS SUMMARY | 2024-09-12 09:41 | XMS_ITS | Encounter Summary ---
Author Organization [facility] Address [address] [place] [address] Care Team Providers Care Char Belt Operator Name Role Phone Shay Johnson MD Primary Care Provider [phone] Shay Johnson MD Unavailable + Pcp, [facility] Primary Care Provider Unavailable Raheel Becker MD Primary Care Provider [phone] Raheel Becker MD Unavailable [phone] Francisco Javier Byrne Unavailable Raheel Becker MD Unavailable [phone] Reason for Visit * Reason Comments Refill Request Encounter Details Date Type Department Care Team (Late st Contact Info) Description 06/03/2020 Refill [facility] [address] [place] [address] Shira Sevilla MD [address] [facility] [place] [address] Refill Request Social History Tobacco Use Types Packs/Day Years Used Date Smoking Tobacco: Former Cigarettes 0.2 20 Smokeless Tobacco: Never Alcohol Use Standard Drinks/Week Comments Yes 0.8 (1 standard drink = 0.6 oz p ure alcohol) Citlaly and Movie Fridays Comments No Sex and Gender Information Value Date Recorded Sex Assigned at Female 12/24/2020 10:36 AM CDT Legal 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 Gender Identity Female 12/24/2020 10:36 AM [...] Description 11/13/2024 10:00 AM CDT Office Visit [facility] [address] [place] [address] [place] [phone] Raheel Becker MD [address] [place] [phone] documented as of this encounter Visit Diagnoses Not on filedocumented in this encounter Care Teams Char Belt Operator Relationship Specialty Start Date End Date Shay Johnson MD PCP - General Internal Medicine 01/04/19 09/28/22 Shay Johnson MD [address] [place] [address] PCP - Attributed-[facility] 11/03/18 Pcp, [facility] PCP - General 09/29/22 10/24/22 Raheel Becker MD [address] [place] [phone] PCP - General Internal Medicine 10/25/22 Rhaeel Becker MD [address] [place] [phone] PCP - Attributed-[facility] 12/03/22 Raheel Becker MD [address] [facility] [address] [place] [address] PCP - Attributed-[facility] 09/03/23 Francisco Javier Byrne Care Coordination Specialist Care Management 09/10/23 09/10/23 documented as of this encounter
--- OUTSIDE RECORDS SUMMARY | 2024-09-12 09:42 | XMS_ITS | Clinical Summary ---
Author Organization [facility] [employer] Address [address] [place] [address] Care Team Providers Care Buncher Operator Name Role Phone Raheel Becker MD Primary Care Provider [phone] Raheel Becker MD Unavailable [phone] Source Comments [facility] [employer],non-owned Affiliates and Associated Physician Practices is amultiple site organization consisting of ambulatory clinics and hospital sitesin [place], [place], [place] and [place]. This disclosure is being madepursuant to the Care Everywhere program and may not contain all information available regarding this patient. 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 11/28/2019 Full code status 09/04/2016 HLD (hyperlipidemia) 12/29/2014 Overview (10/25/2022): 10 year CVD risk intermediate at 10.8% 10/25/2022 Chronic back pain 11/03/2014 Assessment & Plan (05/01/2023 11:23 AM SECURITIES ADVISER): Multiple spinal fusions Left lower extremity adversely affected Neuropathy 11/03/2014 Resolved Problems Problem Noted Date Diagnosed Date Resolved Date Depression 02/07/2019 06/17/2024 Congestive heart failure, un specified HF chronicity, unspecified heart failure type 02/07/2019 10/25/2022 Overview (02/07/2019): Shay Johnson MD 02/07/2019 Vitamin D deficiency 10/29/2017 024 Encounters Date Type Department Care Team Description 08/21/2024 Refill [facility] - Internal Medicine [address] [place] [phone] Raheel Becker MD Refill Request 08/14/2024 Refill [facility] Internal Medicine [address] [place] [phone] Raheel Becker MD Refill Request 07/16/2024 Telephone [facility] Internal Medicine [address] [place] [phone] Raheel Becker MD Record Request 07/15/2024 Telephone [facility] Internal Medicine [address] [place] [phone] Raheel Becker MD Results 06/24/2024 Orders Only [facility] Internal Medicine [address] [place] [phone] Raheel Becker MD Pre-op exam 06/18/2024 Results Follow-Up [facility] Internal Medicine [address] [place] [phone] Raheel Becker MD 06/17/2024 10:40 AM CDT Office Visit [facility] Internal Medicine [address] [place] [phone] Raheel Becker MD Pre-op exam (Primary Dx); Primary osteoarthritis of left hip; Moderate episode of recurrent major depressive disorder (HCC); Hyperlipidemia, unspecified hyperlipidemia type; Balance problem; Chronic low back pain, unspecified back pain laterality, unspecified whether sciatica present from Last 3 Months Immunizations Immunization Administration Dates Next Due Splinter.me primary monoval ent 12+ yr 0.3mL Purple [...] AM CDT Legal Sex Female 6:33 AM SECURITIES ADVISER Gender Identity Female 12/24/2020 10:36 AM CDT [...] Description 11/13/2024 10:00 AM CDT Office Visit [facility] - Internal Medicine [address] [place] [address] [place] [address] [place] [address] [address] [place] [address] Health Maintenance Due Date Last Done Comments COLOGUARD (AGES 45-75) - COLON CA SCREENING 1950 CT COLONOGRAPHY - COLON CA SCREENING 1950 FIT - COLON CA SCREENING 1950 FLEX SIG - COLON CA SCREENING 1950 ZOSTER VACCINE (1 of 2) 02/24/2000 COVID-19 VACCINE ( season) 2024 02/12/2024, 12/25/2021, 12/27/2020, Additional history exists MAMMOGRAM 10/28/2024 10/28/2022, /0 07/2020, 01/04/2019, Additional history exists INFLUENZA VACCINE (#1) 2024 , 02/12/2024, 11/15/2022, Additional history exists DTAP/TDAP/TD VACCINES (2 - [...] Pt: or over 60 yrs Completed 02/12/2023 MEDICARE AWV CALENDAR YEAR Completed 03/28/2024, 05/01/2023, [...] ENDOSCOPY, COLON, SCREENING Routine 01/09/2023 10:39 AM SECURITIES ADVISER Screen for colon cancer Personal history of [...] 8:11 AM CDT Performed at: 01 - [facility] [id number] Liquor Bridge Operator: Kurtis Law PhD, Phone: [phone] us Raheel Becker MD LAB - CHEMISTRY ORDERABLES Fi nal Result [facility] ACCOUNT BILL [address] [place] [address] * VITAMIN D 25-HYDROXY (06/17/2024 11:15 AM CDT) Vitamin D, 25 Hydroxy 36.7 30.0 - 100.0 ng/mL [facility] ACCOUNT BILL Comment: Vitamin D deficiency has been defined by the [place] [employer] and an Endocrine Society practice guideline as a level of serum 25-OH vitamin D less than 20 ng/mL (1,2). The Endocrine Society went on to further define vitamin D insufficiency as a level between 21 and 29 ng/mL (2). 1. IOM ([place] [employer]). 2010. Dietary reference intakes for [...] 7:09 AM CDT Performed at: 01 - [facility] [id number] Liquor Bridge Operator: Kurtis Law PhD, Phone: [phone] us Raheel Becker MD LAB - CHEMISTRY ORDERABLES Fi nal Result [facility] ACCOUNT BILL [address] [place] [address] * CBC WITH DIFFERENTIAL (06/17/2024 11:15 AM [...] 12:07 AM CDT Performed at: 01 - [facility] [id number] [place], [place] [id number] Liquor Bridge Operator: Kurtis Law PhD, Phone: [phone] us Raheel Becker MD LAB - HEMATOLOGY ORDERABLES F inal Result [facility] ACCOUNT BILL [address] [place] [address] * COMPREHENSIVE METABOLIC PANEL (06/17/2024 11:15 AM CDT) [facility] Glucose 99 70 - 99 mg/dL [facility] [...] - 06/18/2024 7:09 AM CDT Performed at: [address] [place] [id number] Liquor Bridge Operator: Kurtis Law PhD, Phone: [phone] us Raheel Becker MD LAB - CHEMISTRY ORDERABLES Fi nal Result Performing Organization Address [facility] Co de Phone Number [facility] ACCOUNT BILL [address] [place] [address] * LIPID PROFILE (06/17/2024 11:15 AM CDT) [...] - 06/18/2024 8:11 AM CDT Performed at: [address] [place] [id number] Liquor Bridge Operator: Kurtis Law PhD, Phone: [phone] us Raheel Becker MD LAB - CHEMISTRY ORDERABLES Fi nal Result Performing Organization Address [facility] Co de Phone Number [facility] ACCOUNT BILL [address] [place] [address] * EKG 12-LEAD (06/17/2024) 06/17/2024 us Raheel Becker MD ECG ORDERABLES Final Result * ENDOSCOPY, COLON, SCREENING (01/09/2023 10:39 AM SECURITIES ADVISER) Report Endoscopy POC _ Patient Name: Diana Keen Procedure Date: 01/09/2023 10:39 AM Date of : 1950 Admit Type: Outpatient Age: 72 Gender: Female Ethnicity: Not or Race: White Attending MD: Lianna Bhardwaj MD, [id number] _ Procedure: Colonoscopy Indications: Surveillance: Personal history [...] pathology results. Procedure Code(s): --- Professional --- 79291, Colonoscopy, flexible; with biopsy, single or multiple --- Technical --- 76329, Colonoscopy, flexible; with biopsy, single or multiple [...] or abscess without bleeding CPT copyright 2020 [employer]. All rights reserved. The codes documented in this report are preliminary and upon manager recovery review may be revised to meet current compliance requirements. Lianna Bhardwaj MD 01/09/2023 12:13:55 PM This report has been signed electronically. Number of Addenda: 0 Note Initiated On: 01/09/2023 10:39 AM [facility] ENDOSCOPY 01/09/2023 10:3 9 AM SECURITIES ADVISER Narrative Procedure Note Lianna Bhardwaj MD - 01/09/2023 12:14 PM CST Colonoscopy Small asc colon polyp resected, not retrieved Rpt 5 yrs D/w diana us Lianna Bhardwaj MD GI PROCEDURE ORDERABLES Edited R esult - Final [facility] ENDOSCOPY * MAMMO BILAT SCREENING W DEEDEE [...] include test code 8472. Test Performed at: [facility] [address] [place] [address] DONNA HEREDIA DO,MPH 12/21/2014 8:18 AM CDT 12/21/2014 8:20 AM CDT Anahi Ma MD LAB - CHEMISTRY ORDERABLES F inal Result [facility] [address] [place] [address] from Last 3 Months or Most Recently Relevant to Health Maintenance Insurance [facility] MANAGED MEDICARE [place] [id number] Member Subscriber Plan / Payer (Ef fective 2023-Present) Name:Diana Keen Relation to Subscriber:Self Name:Diana Keen Payer ID:[id number] (NAIC) Type:Medicare-Managed Care Address: [address] Advance Directives * Full Code (Latest Code Status on File) Date Activated Date Inactivated Comments 09/04/2016 12:05 PM 01/09/2023 10:13 AM Care Teams Buncher Operator Relationship Specialty Start Date End Date Raheel Becker MD [address] [place] [address] PCP - General Internal Medicine 10/25/22 Raheel Becker MD [address] [place] [address] PCP - [facility] P4 09/03/23
== END 2024-09-12 09:38 | disposition home or self-care (01) ==
PROVIDERS: Visit Provider Physician Assistant Surgical
DX: R60.0 Localized edema (principal)
CPT/HCPCS: 93971

== ENCOUNTER 2025-01-13 09:00 | Outpatient (RCR) | payer MEDICARE, SELFPAY ==
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
--- NOTE | 2024-10-16 10:45 | OPREHPOC ---
Outpatient Therapy Plan of Care This is a Multidisciplinary Plan of Care that may contain components documented by all disciplines (PT, OT, and ST.) PT Problem 1 PT Problem #1 Knowledge Deficit PT Goal 1 Goal / Goal Update [place] with HEP Target Visit 4 PT Goal 2 Goal / Goal Update Report consistency with 0/10 pain with ambulation Target Visit 8 PT Problem 2 PT Problem #2 Impaired Range of Motion PT Goal 1 Goal / Goal Update Patient will achieve 40 degrees of keely hip abdcution to optimize hip mobility with gait and ADLs Target Visit 8 PT Goal 1 Goal / Goal Update 1. Patient will ambulate with single point cane with even stride length bilaterally 2. Patient will perform 2 minute walk test to a total of 450 feet to improve gait speed and stability Target Visit 8 PT Problem 4 PT Problem #4 Impaired Strength PT Goal 1 Goal / Goal Update Improve keely hip abduction strength to 4/5 to improve lateral stability with gait and transfers Target Visit 8
--- NOTE | 2024-10-16 10:45 | PTOPEVAL1 ---
Assessment and note entered by Riccardo Lujan, PT Evaluation Information Assessment Status Evaluation Diagnosis s/p L SKIP ICD-10 Condition Codes (PT) Pain in left hip M25.552 Onset 08/05/24 Subjective Information Reports that she has had back pain and left hip pain since surgery. She is most concerned with her gait stability and functional strength at this time limiting her progress. Wants to work on getting ailyn in the hip and moving better independent of AD. Pain is mostly controlled at this time. She does notice pain and stiffness in the hips in the AM. She is currently using a straight cane for mobility. Reported Pain Level Pain Score 0: Self Report Assessment PT Clinical Summary Patient presents with gait instability, weakness of hips, and lateral hip pain with dynamic activity. She will benefit from skilled therapy to address these deficits to emphasize gait stabilization, conditioning, and strengthening for performance of independent ADLs. Plan of Care Interventions Gait Training,Neuro Re-education,Therapeutic Activities,Therapeutic Exercise PT Services Indicated Yes Treatment Frequency and 2x/week for 8 visits Duration These treatments will address the objective and functional deficits as defined above. The patient will be advanced safely and appropriately in order for the patient to progress towards his/her prior level of function. Additional exercises will be introduced and as well as a comprehensive home exercise program upon discharge, if needed, ?to ensure carryover of functional gains achieved in the clinic. This treatment plan has been reviewed and agreement upon by the patient.
--- NOTE | 2024-11-05 12:10 | PCPTNOTE ---
patient canceled appt today due to lack of transportation.
--- NOTE | 2024-12-03 12:13 | PCPTNOTE ---
pt did not show for today's reeval appt. called and left voice message.
--- NOTE | 2024-12-22 16:36 | OPREHPOC ---
Outpatient Therapy Plan of Care This is a Multidisciplinary Plan of Care that may contain components documented by all disciplines (PT, OT, and ST.) PT Problem 1 PT Problem #1 Knowledge Deficit PT Goal 1 Goal / Goal Update [place] with HEP 12-22-24 progress for L hip goal met EVAL for back NEW GOALS: continue to progress HEP and education Target Visit 19 PT Goal 2 Goal / Goal Update Report consistency with 0/10 pain with ambulation 12-22-24 progress for L hip goal met EVAL for back NEW GOALS: 1* pt report walking tolerance of 1 & 1/2 hours Target Visit 19 PT Problem 2 PT Problem #2 Impaired Range of Motion PT Goal 1 Goal / Goal Update Patient will achieve 40 degrees of keely hip abdcution to optimize hip mobility with gait and ADLs 12-22-24 progress for L hip goals met Target Visit 8 Progress Met PT Goal 2 Goal / Goal Update 12-22-24 EVAL for back NEW GOALS: increase hamstring length to decrease pull on lumbar spine: 1* R SLR in supine to 60 2* L to 70' Target Visit 19 PT Problem 3 PT Problem #3 Impaired Functional Mobility PT Goal 1 Goal / Goal Update 1. Patient will ambulate with single point cane with even stride length bilaterally 2. Patient will perform 2 minute walk test to a total of 450 feet to improve gait speed and stability 12-22-24 progress for L hip/ EVAL back and balance goal 1 met continue towards goal #2 NEW goal #3 Sweet balance socre of 54/56 #4- in standing, pt able to touch the floor without loss of balance Target Visit 19 PT Problem 4 PT Problem #4 Impaired Strength PT Goal 1 Goal / Goal Update Improve keely hip abduction strength to 4/5 to improve lateral stability with gait and transfers 12-22-24 progress for L hip goal met EVAL for back NEW GOALS: 1* sit to stand without use of UE x 5 reps single leg standing x 6 seconds with good stability 2* R 3* L Target Visit 8
--- NOTE | 2024-12-22 16:36 | PTOPEVAL1 ---
Assessment and note entered by Sally Purvis, PT Progress for L THR/ Evaluation for back and balance Assessment Status Evaluation Diagnosis s/p L SKIP ICD-10 Condition Codes (PT) Pain in low back M54.50,Pain in left hip M25.552, Aftercare following joint replacement surgery Z47. 1 Onset 08/05/24 Subjective Information back really hurting me now; hip feeling better- no really hurt any more; use the cane PRN, have a wheeled walker but not using any more; have had PT in the past and it did not really help my back; do some back stretching from therapy before and they help a little have chronic back pain, have had 4 lumbar surgeries; due to back pain, cannot stoop, squat, bend forward to do home cleaning; GOAL: find a way to ease the back pain, be able to walk better, improve with walking; BACK PAIN: in the past week: 5-8/10; sharp and debiliting pain; R and L lumbar, L buttock pain increase pain: one hour of standing/walking with tasks; decrease pain: change positions, with sleeping: occasionally awaken due to back pain; is not a good sleeper; Reported Pain Level Pain Score 0,5: Self Report Additional Pain Score Comments back pain in the past week: 5-8/10; sharp and debiliting pain; R and L lumbar, L buttock pain increase pain: one hour of standing/walking with tasks; decrease pain: change positions, with sleeping: occasionally awaken due to back pain; is not a good sleeper; Assessment PT Clinical Summary Diana has received 8 PT sessions, s/p L THR. She presents with new orders for balance, gait and back pain. She has improved with her L hip: does not report any pain in her hip; self assessment with LE functional scale rating from 74 to 68%; 2 minute walking test from 305' with cane to 375' without device; increase hip abduction ROM bilateral and increase strength L hip. With the back: she reports chronic pain in her back and a history of 4 lumbar surgeries. Single leg standing bilateral is unstable 2 seconds; Sweet balance score of 47/56; hamstring tightness with supine SLR on R 60' and L 45'; standing trunk flexion increases her pain; in standing, she is not able to squat/ lean forward to touch the ground- at home uses grabber to pick things up off the floor; weakness of hip abduction and extension bilateral. Skilled PT services are indicated for modalities to decrease pain in back, therapeutic exercises to stretch and strengthen her trunk and hips, with education for HEP, body mechanics and pain management. Plan of Care Interventions Electrical Stimulation,Hot Pack/Cold Pack,Manual Therapy,Neuro Re-education,Patient/Caregiver Education,Therapeutic Activities,Therapeutic Exercise,Ultrasound,Other Other Interventions taping PT Services Indicated Yes Treatment Frequency and 1-2x/wk for 10 visits Duration These treatments will address the objective and functional deficits as defined above. The patient will be advanced safely and appropriately in order for the patient to progress towards his/her prior level of function. Additional exercises will be introduced and as well as a comprehensive home exercise program upon discharge, if needed, ?to ensure carryover of functional gains achieved in the clinic. This treatment plan has been reviewed and agreement upon by the patient.
--- NOTE | 2024-12-25 10:10 | PCPTNOTE ---
Pt called to cancel her appointment this morning due to illness.
--- NOTE | 2024-12-31 09:16 | PCPTNOTE ---
Called and cancelled d/t scheule conflict w/ kids. Per front office. AKS
== END 2025-01-14 23:59 | disposition home or self-care (01) ==
LOC: ANHPT 09:00
PROVIDERS: Visit Provider Orthopaedic Surgery
DX: Z47.1 Aftercare following joint replacement surgery (principal); Z96.642 Presence of left artificial hip joint
CPT/HCPCS: 97014; 97110; 97112; 97116; 97140; 97161; 97530; G0283

== ENCOUNTER 2025-03-02 09:00 | Outpatient (RCR) | payer MEDICARE, SELFPAY ==
--- NOTE | 2025-01-19 09:15 | PCPTNOTE ---
pt did not show for today's reeval appt. Called and left voice mail message.
--- NOTE | 2025-01-20 13:21 | PTOPPROG ---
Assessment and note entered by Sally Purvis, PT Assessment Status Progress Diagnosis s/p L SKIP ICD-10 Condition Codes (PT) Pain in low back M54.50,Pain in left hip M25.552, Aftercare following joint replacement surgery Z47. 1 Onset 08/05/24 Subjective Information still having problems with my balance and back hurts; use the cane when go out places and in the house, hold onto furniture if I need something for support; no falls since starting therapy; have been doing the exercises at home; feel like I need more therapy. do not feel sure footed when I walk at all; Assessment PT Clinical Summary Diana has received 14 PT sessions, s/p L THR and diagnosis of back pain. compare today to the last assessment: does not report any pain in her hip; back pain range is the same at 5-8/10; reported standing and walking tolerance from 1 hour to 2 hours with home activities; self assessment with LE functional scale rating from 68% to 65% limitation in activity level; 2 minute walking test with cane 375' to 335'; Single leg standing bilateral is unstable 2 seconds on R and L; Sweet balance score is same at 47/56; hamstring tightness with supine SLR improved by 10' bilateral to 60'; 5 reps sit to stand time of 20 seconds, with use of 1 UE. Education for HEP, body mechanics and pain management. Skilled PT services are indicated to continue for modalities to decrease pain in back, therapeutic exercises to stretch and strengthen her trunk and hips, with education for HEP, body mechanics and pain management. Plan of Care Interventions Electrical Stimulation,Hot Pack/Cold Pack,Manual Therapy,Neuro Re-education,Patient/Caregiver Education,Therapeutic Activities,Therapeutic Exercise,Ultrasound,Other Other Interventions taping PT Services Indicated Yes Treatment Frequency and 1-2x/wk for 6 visits Duration These treatments will address the objective and functional deficits as defined above. The patient will be advanced safely and appropriately in order for the patient to progress towards his/her prior level of function. Additional exercises will be introduced and as well as a comprehensive home exercise program upon discharge, if needed, ?to ensure carryover of functional gains achieved in the clinic. This treatment plan has been reviewed and agreement upon by the patient.
--- NOTE | 2025-01-20 13:21 | OPREHPOC ---
Outpatient Therapy Plan of Care This is a Multidisciplinary Plan of Care that may contain components documented by all disciplines (PT, OT, and ST.) PT Problem 1 PT Problem #1 Knowledge Deficit PT Goal 1 Goal / Goal Update [place] with HEP 12-22-24 progress for L hip goal met EVAL for back NEW GOALS: continue to progress HEP and education 01-20-25 progress goal met continue to progress Target Visit 20 PT Goal 2 Goal / Goal Update Report consistency with 0/10 pain with ambulation 12-22-24 progress for L hip goal met EVAL for back NEW GOALS: 1* pt report walking tolerance of 1 & 1/2 hours 01-20-25 progress goal met Target Visit 19 Progress Met PT Problem 2 PT Problem #2 Impaired Range of Motion PT Goal 1 Goal / Goal Update Patient will achieve 40 degrees of keely hip abdcution to optimize hip mobility with gait and ADLs 12-22-24 progress for L hip goals met Target Visit 8 Progress Met PT Goal 2 Goal / Goal Update 12-22-24 EVAL for back NEW GOALS: increase hamstring length to decrease pull on lumbar spine: 1* R SLR in supine to 60 2* L to 70' 01-20-25 progress goal1 met continue towards goal 2 Target Visit 20 PT Problem 3 PT Problem #3 Impaired Functional Mobility PT Goal 1 Goal / Goal Update 1. Patient will ambulate with single point cane with even stride length bilaterally 2. Patient will perform 2 minute walk test to a total of 450 feet to improve gait speed and stability 12-22-24 progress for L hip/ EVAL back and balance goal 1 met continue towards goal #2 NEW goal #3 Sweet balance socre of 54/56 #4- in standing, pt able to touch the floor without loss of balance 01-20-25 progress goal 1 met continue towards goals 2,3,4 Target Visit 20 PT Problem 4 PT Problem #4 Impaired Strength PT Goal 1 Goal / Goal Update Improve keely hip abduction strength to 4/5 to improve lateral stability with gait and transfers 12-22-24 progress for L hip goal met EVAL for back NEW GOALS: 1* sit to stand without use of UE x 5 reps single leg standing x 6 seconds with good stability 2* R 3* L 01-20-25 progress goals met continue towards Target Visit 20
--- NOTE | 2025-03-02 11:25 | OPREHPOC ---
Outpatient Therapy Plan of Care This is a Multidisciplinary Plan of Care that may contain components documented by all disciplines (PT, OT, and ST.) PT Problem 1 PT Problem #1 Knowledge Deficit PT Goal 1 Goal / Goal Update [place] with HEP 12-22-24 progress for L hip goal met EVAL for back NEW GOALS: continue to progress HEP and education 01-20-25 progress goal met continue to progress Target Visit 20 PT Goal 2 Goal / Goal Update Report consistency with 0/10 pain with ambulation 12-22-24 progress for L hip goal met EVAL for back NEW GOALS: 1* pt report walking tolerance of 1 & 1/2 hours 01-20-25 progress goal met Target Visit 19 Progress Met PT Problem 2 PT Problem #2 Impaired Range of Motion PT Goal 1 Goal / Goal Update Patient will achieve 40 degrees of keely hip abdcution to optimize hip mobility with gait and ADLs 12-22-24 progress for L hip goals met Target Visit 8 Progress Met PT Goal 2 Goal / Goal Update 12-22-24 EVAL for back NEW GOALS: increase hamstring length to decrease pull on lumbar spine: 1* R SLR in supine to 60 2* L to 70' 01-20-25 progress goal1 met continue towards goal 2 Target Visit 20 Progress Met PT Problem 3 PT Problem #3 Impaired Functional Mobility PT Goal 1 Goal / Goal Update 1. Patient will ambulate with single point cane with even stride length bilaterally 2. Patient will perform 2 minute walk test to a total of 450 feet to improve gait speed and stability 12-22-24 progress for L hip/ EVAL back and balance goal 1 met continue towards goal #2 NEW goal #3 Sweet balance socre of 54/56 #4- in standing, pt able to touch the floor without loss of balance 01-20-25 progress goal 1 met continue towards goals 2,3,4 Target Visit 20 Progress Met PT Problem 4 PT Problem #4 Impaired Strength PT Goal 1 Goal / Goal Update Improve keely hip abduction strength to 4/5 to improve lateral stability with gait and transfers 12-22-24 progress for L hip goal met EVAL for back NEW GOALS: 1* sit to stand without use of UE x 5 reps single leg standing x 6 seconds with good stability 2* R 3* L 01-20-25 progress goals met continue towards Target Visit 20
--- NOTE | 2025-03-02 11:25 | PTOPDC ---
Assessment and note entered by Riccardo Lujan, PT Evaluation Information Assessment Status Discharge Diagnosis s/p L SKIP ICD-10 Condition Codes (PT) Pain in low back M54.50,Pain in left hip M25.552, Aftercare following joint replacement surgery Z47. 1 Onset 08/05/24 Subjective Information Patient reports overall progress. she and her friends have both noticed improved gait speed and she is no longer requiring use of single point cane. Still has good days and bad days with her back but overall pain is down. Reported Pain Level Pain Score 4,4: Self Report Assessment PT Clinical Summary Patient has met majority of goals for [facility]. Still struggles with some back and hip pain off and on but nothing debilitating. Overall she has seen tremendous progress over the past month. Should continue to see progress moving forward. Plan of Care PT Services Indicated Yes
== END 2025-03-02 14:47 | disposition home or self-care (01) ==
LOC: ANHPT 09:00
PROVIDERS: Visit Provider Orthopaedic Surgery
DX: Z47.1 Aftercare following joint replacement surgery (principal); Z96.642 Presence of left artificial hip joint
CPT/HCPCS: 97014; 97110; 97140; 97530; G0283